=== PATIENT | female | born 1990 | race Caucasian/White ===

== ENCOUNTER → 2017-10-22 15:07 | Outpatient (CLI) | payer BC, SELFPAY ==
[2017-10-22 15:29] LABS: Basophils % 0.2 % (0.1-2.0); Eosinophils # 0.1 K/mm3 (0.0-0.4); Eosinophils % 1.5 % (0.1-12.0); Hemoglobin 11.4 g/dL (12.2-16.2); Lymphocytes % 38.5 K/mm3 (10-50); Mean Corpuscular HGB Conc 33.5 g/dL (31.8-35.4); Mean Corpuscular Hemoglobin 30.9 pg (27.0-31.2); Mean Corpuscular Volume 92.1 fl (81-99); Mean Platelet Volume 7.8 fl (7.4-10.4); Monocytes # 0.4 K/mm3 (0.1-1.0); Monocytes % 4.9 % (1.7-9.3); Neutrophils # 4.2 K/mm3 (1.8-7.8); Neutrophils % 54.8 % (37.0-80.0); Platelet Count 269 K/mm3 (142-424); Red Blood Count 3.69 M/mm3 (4.20-5.40); Red Cell Distribution Width 12.8 % (11.5-17.5); White Blood Count 7.7 K/mm3 (4.8-10.8)
[2017-10-24 12:57] LABS: HIV Screen 4th Generation wRfx Non Reactive (Non Reactive); Hepatitis B Surface Antigen Negative (Negative); Hepatitis C Antibody >11.0 s/co ratio (0.0-0.9); Rapid Plasma Reagin Ab Titer Non Reactive (NonRea<1:1)
== END ==
PROVIDERS: PCP Obstetrics & Gynecology; Visit Provider Obstetrics & Gynecology
DX: Z34.90 Encounter for supervision of normal pregnancy, unspecified, unspecified trimester (principal)
CPT/HCPCS: 36415; 85025; 86592; 86703; 86762; 86850; 87340; 87380; G0432

== ENCOUNTER → 2017-12-30 14:37 | Outpatient (CLI) | payer BC, SELFPAY ==
--- NOTE | 2017-12-30 14:41 | US_ITS ---
US OB /maternal detail: INDICATION: ITS.REASON: US OB Complete ORDERING PHYSICIAN: Catrina Haynes MD PATIENT AGE: 27 years TECHNIQUE: ultrasound transabdominal scanning. COMPARISON: No previous relevant studies. FINDINGS: Single viable intrauterine gestation. Cephalic position. Placenta: Posterior placenta grade 1. There is average amount fluid. The cervix appears satisfactory. Closed and measuring 3 cm in length. Complete survey performed and was unremarkable on the submitted images as in PACS. No discrete anomalies identified on survey imaging by technologist. Active fetus. Three-vessel cord with satisfactory umbilical cord insertion. 4- chamber heart noted. Survey of brain & ventricles.unremarkable Face and neck survey unremarkable. Diaphragm and chest views unremarkable . Abdomen: Both kidneys noted and unremarkable. Stomach noted and satisfactory. Spine: Survey of the spine satisfactory with no anomalies identified nor imaged. Both arms and legs noted. Amniotic Fluid: Adequate. Maternal adnexa: No significant findings. Measurements: Average ultrasound age 19w5d. Gestational Age 20w1d. Estimated due date by ultrasound age 1105/21/2018. Estimated weight 304 grams. This is 20th percentile based on established due date of 05/18/2018 BPD = 19w3d OFD = 20w4d HC = 19w3d AC = 19w3d FL = 20w1d Heart Rate = 129 bpm Cerebellum = 20w5d Humerus = 20w3d HC/AC is 1.19 (1.09-1.26). CI is 73% (70-86%). FL/BPD is 73%. FL/AC is 23%. IMPRESSION: Single live fetus at average ultrasound age of 19 weeks 5 days. No obvious anomalies. All parameters correlate. Please see above for detail.
== END ==
PROVIDERS: Visit Provider Obstetrics & Gynecology
DX: Z36.0 Encounter for antenatal screening for chromosomal anomalies (principal)
CPT/HCPCS: 76811

== ENCOUNTER → 2018-04-15 09:56 | Outpatient (CLI) | payer BC, SELFPAY ==
--- NOTE | 2018-04-15 | US_ITS ---
US OB biophysical profile, US OB follow up: Indication: ITS.REASON: US OB BPP Growth ORDERING PHYSICIAN: Catrina Haynes MD PATIENT AGE: 27 years FINDINGS: There is a single live fetus which is in cephalic presentation. Placenta is posterior and grade 2. The cervix is closed and measures approximately 3 cm. Heart tones are present at 120 bpm. TAMI is 12 cm. Biophysical profile is 8 of 8 The following parameters are obtained: Average ultrasound age is 33 weeks 5 days. Estimated due date by ultrasound is 05/29/2018. Estimated weight is 2011 g. This is 3 percentile consistent with small for gestational age BPD: 35 weeks 0 days OFD: 35 weeks 6 days HC: 35 weeks 0 days AC: 31 weeks 6 days FL: 32 weeks 5 days heart rate: 120 bpm. HC/AC: 1.13 Cephalic index: 78% FL/BPD: 73% FL/AC: 23% Amniotic fluid index: 12 cm Qualitative AFV: 2 breathing movements: 2 Gross body movements: 2 Tone: 2 Biophysical profile score: 8/8 Doppler evaluation of the umbilical artery: SD ratio: 2.7 Resistive index: 0.63 IMPRESSION: Single live intrauterine gestation in cephalic presentation with an average ultrasound age of 33 weeks 5 days. Estimated weight is 2011 g which is 3rd percentile. The HC BPD and OFD correlate to patient's gestational age of approximately 35 weeks. The abdominal circumference and femur length are decreased at 31 and 32 weeks. These findings are consistent with asymmetric intrauterine growth restriction. Biophysical profiles of 8 with normal amount of amniotic fluid The placenta is posterior and grade 2 with unremarkable Doppler evaluation of the umbilical artery.
== END ==
PROVIDERS: Visit Provider Obstetrics & Gynecology
DX: F11.20 Opioid dependence, uncomplicated (principal); O99.320 Drug use complicating pregnancy, unspecified trimester; R76.8 Other specified abnormal immunological findings in serum; Z79.891 Long term (current) use of opiate analgesic; Z87.898 Personal history of other specified conditions
CPT/HCPCS: 76816; 76819

== ENCOUNTER 2018-04-16 11:00 | Outpatient (CLI) | payer BC, SELFPAY ==
[2018-04-16 11:13] VITALS: BP 116/77; PULSE 75; RESP 18; TEMP 36.9; O2SAT 98; BMI 27.4
== END 2018-04-16 11:40 | disposition home or self-care (01) ==
LOC: OBOUT 11:02 → OB 11:02
PROVIDERS: Visit Provider Nurse Practitioner Obstetrics & Gynecology
DX: Z34.90 Encounter for supervision of normal pregnancy, unspecified, unspecified trimester (principal)
CPT/HCPCS: 59025

== ENCOUNTER 2018-04-18 12:02 | Inpatient (IN) ==
[2018-04-18 13:19] LABS: Basophils % 0.3 % (0.1-2.0); Eosinophils # 0.1 K/mm3 (0.0-0.4); Eosinophils % 0.7 % (0.1-12.0); Hematocrit 33.4 % (37.0-47.0); Hemoglobin 11.2 g/dL (12.2-16.2); Lymphocytes # 2.7 K/mm3 (0.7-4.5); Lymphocytes % 30.3 K/mm3 (10-50); Mean Corpuscular HGB Conc 33.5 g/dL (31.8-35.4); Mean Corpuscular Hemoglobin 31.9 pg (27.0-31.2); Mean Corpuscular Volume 95.1 fl (81-99); Mean Platelet Volume 8.8 fl (7.4-10.4); Monocytes # 0.6 K/mm3 (0.1-1.0); Monocytes % 6.2 % (1.7-9.3); Neutrophils # 5.6 K/mm3 (1.8-7.8); Neutrophils % 62.5 % (37.0-80.0); Platelet Count 280 K/mm3 (142-424); Red Blood Count 3.51 M/mm3 (4.20-5.40); Red Cell Distribution Width 13.5 % (11.5-17.5)
[2018-04-18 15:06] LABS: Appearance,Urine SL CLOUDY (Clear); Blood, Urine Negative (Negative); Color,Urine YELLOW (Yellow); Glucose,Urine (UA) 2+ (Negative); Ketones,Urine TRACE (Negative); Leukocyte Esterase,Urine Negative (Negative); Microscopic, Urine URINE MICROSCOPIC (MICROSCOPIC); PH,Urine 6.5 (5.0-8.5); Protein,Urine Negative (Negative); Specific Gravity, Urine 1.025 (1.005-1.030)
[2018-04-18 15:12] LABS: Bilirubin,Urine Negative (Negative)
[2018-04-18 15:13] LABS: Amphetamine/Metha Screen,Urine Negative ng/mL (<1000); Barbiturates Screen,Urine Negative ng/mL (<200); Benzodiazepines Screen,Urine Negative ng/mL (<200); Cannabinoid Screen,Urine Negative ng/mL (<50); Cocaine Screen,Urine Negative ng/mL (<300); Methadone Screen,Urine Negative ng/mL (<300); Opiate Screen,Urine Negative ng/mL (<300); Phencyclidine Screen,Urine Negative ng/mL (<25)
[2018-04-18 15:16] LABS: Bacteria,Urine 3+ /lpf; Mucus,Urine 4+ /lpf; Squamous Epithelial Cell,Urine 20-50 #/hpf (0-5)
--- NOTE | 2018-04-18 16:23 | History & Physical Report ---
OB - H&P: HPI Antepartum - History of Present Illness Chief complaint: testing for IUGR History of present illness: Patient is established with this practice and very compliant with care during this . Current EGA 35 5/ and presented to triage for outpatient NST ordered as ongoing assessment of IUGR on ultrasound performed 04/15/18, which showed overall growth of 3%. TAMI and UA doppler assessment both normal at that time and twice weekly NST was ordered in short term f/u. At presentation today, she had no complaints, and specifically denied fever, abdominal pain, dysuria, respiratory complaints, leakage of fluid, regular contractions, vaginal bleeding or unusual vaginal discharge. She did report a perceived decrease in movement today prior to presentation when inquired, but thought this was normal for morning time of day. Initial monitoring was not reactive and concerning with a minimal amount of variability, and BPP was ordered. 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 No breathing was observed and that gross movement was only observed with physical "prodding" via ultrasound probe. Gross amniotic fluid was decreased with TAMI of 7.0 but did have a MVP large enough to obtain 2 points for fluid on BPP. BPP score at time of conclusion of ultrasound was 6/10 (-2 breathing and -2 NST) but after being placed back on NST following ultrasound, the strip became reactive and BPP total score 8/10 (-2 breathing). Variability currently alternating between minimal and moderate. Overall impression of NST is not concerning enough to warrant immediate delivery at this GA but is concerning enough to necessitate admission for continuous monitoring and repeat ultrasound for BPP, TAMI and UA dopplers tomorrow morning. has otherwise been complicated by chronic hepatitis C, tobacco abuse and subutex maintenance (history of IV heroin abuse). Current subutex dose is 8mg daily, which she takes in 2 divided doses of 4mg BID. Subutex has been managed by the clinic and dose has been steadily but appropriately decreased over the course of her . UDS performed in office have been as expected at every visit. She has been counseled about the risks to well being with tobacco abuse and reports that she has decreased, but been unable to eliminate, tobacco usage during this . She has a history of a previous CS and is currently scheduled for elective repeat CS at 39 wks. [facility] History Medical History: Denies:: Anxiety, Depression, Hyperlipidemia, Hypertension, Migraine, MRSA, Seizures Other Surgeries: Yes: Amputation: No Fractures: No - *Social History Smoking Status: Current every day smoker Tobacco Type: cigarettes Alcohol Intake: never Substance Use Type: former substance user Comment: heroin - Psychiatric History Expresses thoughts of harming self/others: None Suicide Plan Description: No Plan Pschychiatric History:: Denies:: Anxiety, Depression *Family Hx:: Cancer, Diabetes, Heart Attack, Hypertension, Stroke : 2 Para: 1 Comment: c section G1 Review of Systems - Constitutional Denies anorexia, Denies chills, Denies fever(s) - Eyes Denies blurry vision, Denies change in vision, Denies double vision - ENT Denies bleeding gums, Denies mouth lesions - *Cardiovascular Denies chest pain, Denies shortness of breath - *Respiratory Denies chest congestion, Denies cough, Denies shortness of breath - *Gastrointestinal Denies abdominal pain, Denies heartburn, Denies nausea, Denies vomiting - *Genitourinary Denies abnormal vaginal bleeding, Denies painful urination, Denies vaginal discharge - *Musculoskeletal Denies back pain, Denies body aches - Integumentary/Breasts Denies new lesions, Denies rash - *Neurologic Denies headache(s), Denies loss of vision, Denies other visual disturbances - Psychiatric Denies anxiety, Denies depression - Hematologic/Lymphatic Denies easy bleeding, Denies easy bruising, Denies enlarged lymph nodes Meds Home Medications Medication Instructions Recorded Confirmed Type buprenorphine HCl 8 mg sublingual 8 mg SUBLINGUAL ONCE 10/22/17 04/02/18 History tablet 1 tab PO BID tab 10/22/17 04/02/18 History vitamin,calcium,[id number] acid tablet Allergies Allergy/AdvReac Type Severity Reaction Status Date / Time No Known Allergies Allergy Verified 04/02/18 11:12 OB - H&P: Exam - Physical Exam Vital signs: Temp Pulse Resp BP Pulse Ox 98.0 F 87 20 120/60 100 04/18/18 12:19 04/18/18 12:19 04/18/18 12:19 04/18/18 12:19 04/18/18 12:19 - Constitutional no acute distress, cooperative - Routine HEENT Exam Head: Present: normocephalic, atraumatic Eye: Absent: conjunctival icterus, scleral injection ENT: Present: mucous membranes moist - Routine Chest/Breast/Axilla Exam Chest wall: Absent: tenderness - Routine Respiratory Exam Present: CTA bilaterally. Absent: respiratory distress - Routine Cardiovascular Exam Present: RRR. Absent: tachycardia - Routine Abdominal Exam Present: soft. Absent: tenderness, distended, guarding - Routine Extremities Exam Absent: edema, calf tenderness - Routine Skin Exam Present: dry, warm. Absent: rash - Routine Neurological Exam Present: alert, oriented X3. Absent: sensory deficit, motor deficit, altered mental status - Routine Psychiatric Exam Present: normal affect, cooperative. Absent: depressed, anxious - Detailed Labor and Delivery Exam monitor accelerations: Present (after prolonged monitoring) monitor decelerations: Variable detention variability: Minimal (3-5) (alternating between minimal and moderate over prolonged period of time) OB - Results - Labs Labs: Short CBC 04/18/18 Range/Units 13:09 WBC 9.0 (4.8-10.8) K/mm3 Hgb 11.2 L (12.2-16.2) g/dL Hct 33.4 L (37.0-47.0) % Plt Count 280 (142-424) K/mm3 Urine 04/18/18 Range/Units 14:20 Urine Color Yellow (Yellow) Urine Appearance Sl cloudy (Clear) Urine pH 6.5 (5.0-8.5) Ur Specific [place] 1.025 (1.005-1.030) Urine Protein Negative (Negative) Urine Glucose (UA) 2+ (Negative) OB - A/P Antepartum (1) 35 weeks gestation of Problem details: 35 5/7 Current visit: Yes Status: Acute (2) affected by growth restriction Problem details: Growth 3% Current visit: Yes Status: Acute (3) Oligohydramnios in third trimester Problem details: TAMI 7.0 Current visit: Yes Status: Acute (4) Abnormal ultrasonic finding on screening of mother Problem details: BPP 12/07 (-2 breathing, -2 NST) Current visit: Yes Status: Acute (5) Uteroplacental insufficiency, third trimester Current visit: Yes Status: Acute (6) 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 details: transition from heroin Current visit: No Status: Chronic (7) complicated by subutex maintenance, antepartum Problem details: 8mg BID Current visit: No Status: Acute (8) HCV antibody positive Current visit: No Status: Acute (9) Anemia complicating Problem details: Hgb 11.2 Current visit: Yes Status: Acute (10) Tobacco smoking affecting in first trimester Problem details: 1PPD Current visit: No Status: Chronic (11) Previous section Current visit: No Status: Chronic (12) ASCUS with positive high risk HPV Problem details: HR HPV + (non 16/18) Current visit: No Status: Acute - Additional Plan Additional Information:: Admission for observation Continuous monitoring Repeat BPP with UA dopplers and TAMI in am Recommend administration of steriods in anticipation of delivery before 37 wks due to abnormal testing with evidence of uteroplacental insufficiency Nicotine patch ordered and continued tobacco cessation recommended Continue PNV with FeSO4 supplementation
--- NOTE | 2018-04-18 22:37 | Progress Note ---
Internal Medicine - PN: Subj *Date: 04/18/18 *Time: 22:26 Interval history: HD #1, 35 5/7 antepartum admission for prolonged monitoring with IUGR, oligohydramnios and uteroplacental insufficiency with abnormal testing. The patient has no current/new complaints. Since time of admission, heart tracing has remained stable, with stable status. She has been on continuous monitoring since admission. Baseline 130-140, with the majority of tracing showing moderate variability and intermittent accelerations. Brief periods of time ranging from 4-10 minutes with minimal variability (<5) but overall reassuring/stable. Occasional mild variable decelerations, but less than were observed during evaluation time in triage prior to admission. Possible late decelerations noted at 16:25 and 19:07, although this is unclear as there is no contraction present with which to correlate the timing of the deceleration, and this assessment is made strictly based upon the shape of the deceleration. Since evening shift began, accelerations have been noted at 19:00, 19:16, m21:45, 21:48, 22:00, 22:12, 22:29, 22:32 and 22:33; the non-stress test is currently reactive. Exam Vital signs and Labs for Last 24 Hours: Temp Pulse Resp BP Pulse Ox 98.0 F 87 20 120/60 100 04/18/18 12:19 04/18/18 12:19 04/18/18 12:19 04/18/18 12:19 04/18/18 12:19 Laboratory Results - last 24 hr 04/18/18 13:09: Blood Type A Positive, Antibody Screen Negative 04/18/18 13:09: WBC 9.0, RBC 3.51 L, Hgb 11.2 L, Hct 33.4 L, MCV 95.1, MCH 31.9 H, MCHC 33.5, RDW 13.5, Plt Count 280, MPV 8.8, Neut % (Auto) 62.5, Lymph % (Auto) 30.3, Fisher % (Auto) 6.2, Eos % (Auto) 0.7, Baso % (Auto) 0.3, Neut # (Auto) 5.6, Lymph # (Auto) 2.7, Fisher # (Auto) 0.6, Eos # (Auto) 0.1, Baso # (Auto) 0.0 04/18/18 14:20: Urine Color Yellow, Urine Appearance Sl cloudy, Urine pH 6.5, Ur Specific [place] 1.025, Urine Protein Negative, Urine Glucose (UA) 2+, Urine Ketones Trace, Urine Blood Negative, Urine Nitrate Negative, Urine Bilirubin Negative, Urine Urobilinogen 1.0, Ur Leukocyte Esterase Negative, Urine WBC 5- 10, Ur Squamous Epith Cells 20-50, Urine Bacteria 3+, Urine Mucus 4+ 04/18/18 14:20: Urine Opiates Screen Negative, Urine Methadone Screen Negative, Ur Barbituates Screen Negative, Ur Phencyclidine Scrn Negative, Ur Amphetamines Screen Negative, U Benzodiazepines Scrn Negative, Urine Cocaine Screen Negative, U Marijuana (THC) Screen Negative I & O for Last 24 hours: Intake & Output 04/16/18 04/17/18 04/18/18 04/19/18 11:59 11:59 11:59 11:59 Weight 160 lb - Constitutional no acute distress - *Routine Abdominal Exam Present: soft. Absent: tenderness, distended, guarding - *Routine Extremities Exam Absent: edema - *Routine Skin Exam Present: dry, warm. Absent: rash - *Routine Neurological Exam Present: alert, oriented X3. Absent: altered mental status - Routine Psychiatric Exam Present: normal affect. Absent: depressed, anxious Assessment and Plan (1) 35 weeks gestation of Problem details: 35 5/7 Current visit: Yes Status: Acute Category: Medical Code(s): Z3A.35 - 35 weeks gestation of (2) affected by growth restriction Problem details: Growth 3% Current visit: Yes Status: Acute Category: Medical Code(s): O36.5990 - Maternal care for other known or suspected poor growth, unspecified trimester, not applicable or unspecified (3) Oligohydramnios in third trimester Problem details: TAMI 7.0 Current visit: Yes Status: Acute Category: Medical Code(s): O41.03X0 - Oligohydramnios, third trimester, not applicable or unspecified (4) Abnormal ultrasonic finding on screening of mother Problem details: BPP 12/07 (-2 breathing, -2 NST) Current visit: Yes Status: Acute Category: Medical Code(s): O28.3 - Abnormal ultrasonic finding on screening of mother (5) Uteroplacental insufficiency, third trimester Current visit: Yes Status: Acute Category: Medical Code(s): O36.5130 - Maternal care for known or suspected placental insufficiency, third trimester, not applicable or unspecified (6) 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 details: transition from heroin Current visit: No Status: Chronic Category: Medical Code(s): Z87.898 - Personal history of other specified conditions (7) complicated by subutex maintenance, antepartum Problem details: 8mg BID Current visit: No Status: Acute Category: Medical Code(s): O99.320 - Drug use complicating , unspecified trimester; F11.20 - Opioid dependence, uncomplicated; 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 (8) HCV antibody positive Current visit: No Status: Acute Category: Medical Code(s): R76.8 - Other specified abnormal immunological findings in serum (9) Anemia complicating Problem details: Hgb 11.2 Current visit: Yes Status: Acute Category: Medical Code(s): O99.019 - Anemia complicating , unspecified trimester (10) Tobacco smoking affecting in first trimester Problem details: 1PPD Current visit: No Status: Chronic Category: Medical Code(s): O99.331 - Smoking (tobacco) complicating , first trimester (11) Previous section Current visit: No Status: Chronic Category: Surgical Code(s): Z98.891 - History of uterine scar from previous surgery (12) ASCUS with positive high risk HPV Problem details: HR HPV + (non 16/18) Current visit: No Status: Acute Category: Medical - Assessment and plan all Dx Assessment and Plan for all problems:: Continue inpatient admission with continuous monitoring. Continue IV hydration, continue subutex. Ultrasound for repeat BPP, TAMI and UA dopplers in am. Nicotine patch for maintenance of tobacco status. Continue PNV with FeSO4
--- NOTE | 2018-04-19 16:00 | Progress Note ---
Internal Medicine - PN: Subj *Date: 04/19/18 *Time: 15:56 Interval history: HD#2 No complaints Continues to deny contractions, LOF or VB FM is intermittent but no change from regular baseline status Repeat BPP this morning still 6/8; NST is reactive for total score of 8/10 Variability has been moderate for the majority of tracing (she has remained on continuous EFM), with intermittent brief periods (20 min or less) of minimal variability Occasional small variable decelerations but no late decelerations noted today Exam Vital signs and Labs for Last 24 Hours: Temp Pulse Resp BP Pulse Ox 98.0 F 87 20 120/60 100 04/18/18 12:19 04/18/18 12:19 04/18/18 12:19 04/18/18 12:19 04/18/18 12:19 I & O for Last 24 hours: Intake & Output 04/17/18 04/18/18 04/19/18 04/20/18 11:59 11:59 11:59 11:59 Weight 160 lb Microbiology Reports for the Last 24 Hours: Microbiology 04/18/18 14:20 Urine,Clean Catch Urine Culture - Preliminary NO GROWTH AFTER 24 HOURS - Constitutional no acute distress - *Routine HEENT Exam Head: Present: normocephalic, atraumatic ENT: Present: mucous membranes moist - *Routine Respiratory Exam Present: CTA bilaterally. Absent: respiratory distress - *Routine Cardiovascular Exam Present: RRR. Absent: tachycardia - *Routine Abdominal Exam Present: soft. Absent: tenderness, distended, guarding - *Routine Extremities Exam Absent: edema - *Routine Skin Exam Present: dry, warm - *Routine Neurological Exam Present: alert, oriented X3. Absent: altered mental status - Routine Psychiatric Exam Present: normal affect. Absent: depressed, anxious Assessment and Plan (1) 35 weeks gestation of Problem details: 35 5/7 Current visit: Yes Status: Acute Category: Medical Code(s): Z3A.35 - 35 weeks gestation of (2) affected by growth restriction Problem details: Growth 3% Current visit: Yes Status: Acute Category: Medical Code(s): O36.5990 - Maternal care for other known or suspected poor growth, unspecified trimester, not applicable or unspecified (3) Oligohydramnios in third trimester Problem details: TAMI 7.0 Current visit: Yes Status: Acute Category: Medical Code(s): O41.03X0 - Oligohydramnios, third trimester, not applicable or unspecified (4) Abnormal ultrasonic finding on screening of mother Problem details: BPP 12/07 (-2 breathing, -2 NST) Current visit: Yes Status: Acute Category: Medical Code(s): O28.3 - Abnormal ultrasonic finding on screening of mother (5) Uteroplacental insufficiency, third trimester Current visit: Yes Status: Acute Category: Medical Code(s): O36.5130 - Maternal care for known or suspected placental insufficiency, third trimester, not applicable or unspecified (6) 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 details: transition from heroin Current visit: No Status: Chronic Category: Medical Code(s): Z87.898 - Personal history of other specified conditions (7) complicated by subutex maintenance, antepartum Problem details: 8mg BID Current visit: No Status: Acute Category: Medical Code(s): O99.320 - Drug use complicating , unspecified trimester; F11.20 - Opioid dependence, uncomplicated; 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 (8) HCV antibody positive Current visit: No Status: Acute Category: Medical Code(s): R76.8 - Other specified abnormal immunological findings in serum (9) Anemia complicating Problem details: Hgb 11.2 Current visit: Yes Status: Acute Category: Medical Code(s): O99.019 - Anemia complicating , unspecified trimester (10) Tobacco smoking affecting in first trimester Problem details: 1PPD Current visit: No Status: Chronic Category: Medical Code(s): O99.331 - Smoking (tobacco) complicating , first trimester (11) Previous section Current visit: No Status: Chronic Category: Surgical Code(s): Z98.891 - History of uterine scar from previous surgery (12) ASCUS with positive high risk HPV Problem details: HR HPV + (non 16/18) Current visit: No Status: Acute Category: Medical - Assessment and plan all Dx Assessment and Plan for all problems:: Continue inpatient admission Continuous monitoring with NST and twice weekly BPP Patient advised that she will be delivered at 37 wks if status remains sta ble, or sooner as indicated for non-reassuring status All questions answered with patient and family Total [id number] time spent in counseling 45 minutes
--- NOTE | 2018-04-20 19:04 | Progress Note ---
Internal Medicine - PN: Subj *Date: 04/20/18 *Time: 13:10 Interval history: HD #3 IUGR, oligohydramnios, abnormal testing No new complaints tracing has continued to be stable, but with alternating periods of decreased/minimal variability and moderate variability with accelerations Exam Vital signs and Labs for Last 24 Hours: Temp Pulse Resp BP Pulse Ox 97.8 F 86 18 112/58 L 100 04/19/18 19:28 04/19/18 19:28 04/19/18 19:28 04/19/18 19:28 04/18/18 12:19 I & O for Last 24 hours: Intake & Output 04/18/18 04/19/18 04/20/18 04/21/18 11:59 11:59 11:59 11:59 Weight 160 lb Microbiology Reports for the Last 24 Hours: Microbiology 04/18/18 14:20 Urine,Clean Catch Urine Culture - Final Multiple organisms, suggests contamination. - Constitutional no acute distress - *Routine Respiratory Exam Absent: respiratory distress - *Routine Cardiovascular Exam Present: RRR - *Routine Abdominal Exam Present: soft. Absent: tenderness, distended - *Routine Extremities Exam Absent: edema - *Routine Skin Exam Absent: rash - *Routine Neurological Exam Present: alert, oriented X3 - Routine Psychiatric Exam Present: normal affect. Absent: depressed, anxious Assessment and Plan (1) 35 weeks gestation of Problem details: 35 5/7 Current visit: Yes Status: Acute Category: Medical Code(s): Z3A.35 - 35 weeks gestation of (2) affected by growth restriction Problem details: Growth 3% Current visit: Yes Status: Acute Category: Medical Code(s): O36.5990 - Maternal care for other known or suspected poor growth, unspecified trimester, not applicable or unspecified (3) Oligohydramnios in third trimester Problem details: TAMI 7.0 Current visit: Yes Status: Acute Category: Medical Code(s): O41.03X0 - Oligohydramnios, third trimester, not applicable or unspecified (4) Abnormal ultrasonic finding on screening of mother Problem details: BPP 12/07 (-2 breathing, -2 NST) Current visit: Yes Status: Acute Category: Medical Code(s): O28.3 - Abnormal ultrasonic finding on screening of mother (5) Uteroplacental insufficiency, third trimester Current visit: Yes Status: Acute Category: Medical Code(s): O36.5130 - Maternal care for known or suspected placental insufficiency, third trimester, not applicable or unspecified (6) 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 details: transition from heroin Current visit: No Status: Chronic Category: Medical Code(s): Z87.898 - Personal history of other specified conditions (7) complicated by subutex maintenance, antepartum Problem details: 8mg BID Current visit: No Status: Acute Category: Medical Code(s): O99.320 - Drug use complicating , unspecified trimester; F11.20 - Opioid dependence, uncomplicated; Z79.891 - custodial (current) use of opiate analgesic (8) HCV antibody positive Current visit: No Status: Acute Category: Medical Code(s): R76.8 - Other specified abnormal immunological findings in serum (9) Anemia complicating Problem details: Hgb 11.2 Current visit: Yes Status: Acute Category: Medical Code(s): O99.019 - Anemia complicating , unspecified trimester (10) Tobacco smoking affecting in first trimester Problem details: 1PPD Current visit: No Status: Chronic Category: Medical Code(s): O99.331 - Smoking (tobacco) complicating , first trimester (11) Previous section Current visit: No Status: Chronic Category: Surgical Code(s): Z98.891 - History of uterine scar from previous surgery (12) ASCUS with positive high risk HPV Problem details: HR HPV + (non 16/18) Current visit: No Status: Acute Category: Medical - Assessment and plan all Dx Assessment and Plan for all problems:: Continue inpatient admission status Continuous monitoring BPP twice weekly (scheduled for friday) continue subutex as prescribed by clinic Repeat labs tomorrow Delivery at 37 wks or sooner as indicated for any decline in or maternal status
[2018-04-21 08:13] LABS: Basophils % 0.1 % (0.1-2.0); Eosinophils # 0.1 K/mm3 (0.0-0.4); Eosinophils % 0.4 % (0.1-12.0); Hematocrit 29.9 % (37.0-47.0); Lymphocytes # 2.8 K/mm3 (0.7-4.5); Lymphocytes % 28.1 K/mm3 (10-50); Mean Corpuscular HGB Conc 33.5 g/dL (31.8-35.4); Mean Corpuscular Hemoglobin 32.2 pg (27.0-31.2); Mean Corpuscular Volume 96.2 fl (81-99); Mean Platelet Volume 8.7 fl (7.4-10.4); Monocytes # 0.7 K/mm3 (0.1-1.0); Monocytes % 7.2 % (1.7-9.3); Neutrophils # 6.5 K/mm3 (1.8-7.8); Neutrophils % 64.2 % (37.0-80.0); Platelet Count 247 K/mm3 (142-424); Red Cell Distribution Width 13.6 % (11.5-17.5)
--- NOTE | 2018-04-22 09:03 | Progress Note ---
Internal Medicine - PN: Subj *Date: 04/22/18 *Time: 09:30 Interval history: HD #4, 36 07/06 No new complaints NST continues to have intermittent periods of minimal variability alternating with moderate variability, but no specific late decelerations visualized overnight Ultrasound this morning BPP 8/8 and TAMI unchanged (7cm) No LOF or VB Exam Vital signs and Labs for Last 24 Hours: Temp Pulse Resp BP Pulse Ox 98.4 F 66 16 118/75 97 04/20/18 19:41 04/20/18 19:41 04/20/18 19:41 04/20/18 19:41 04/20/18 19:41 Laboratory Results - last 24 hr 04/18/18 14:20: Ur Buprenorphine Positive A, U Buprenorphine Confirm 1530, Ur Norbuprenorphine Positive A, U Norbuprenorphine fm 1701 04/21/18 07:55: Antibody Screen Negative I & O for Last 24 hours: Intake & Output 04/19/18 04/20/18 04/21/18 04/22/18 11:59 11:59 11:59 11:59 Weight 160 lb - Constitutional no acute distress - *Routine Respiratory Exam Present: CTA bilaterally. Absent: respiratory distress - *Routine Cardiovascular Exam Present: RRR - *Routine Abdominal Exam Present: soft. Absent: tenderness, distended - *Routine Extremities Exam Absent: edema - *Routine Skin Exam Present: dry, warm - *Routine Neurological Exam Present: alert, oriented X3 - Routine Psychiatric Exam Present: normal affect Assessment and Plan (1) 35 weeks gestation of Problem details: 35 5/7 Current visit: Yes Status: Acute Category: Medical Code(s): Z3A.35 - 35 weeks gestation of (2) affected by growth restriction Problem details: Growth 3% Current visit: Yes Status: Acute Category: Medical Code(s): O36.5990 - Maternal care for other known or suspected poor growth, unspecified trimester, not applicable or unspecified (3) Oligohydramnios in third trimester Problem details: TAMI 7.0 Current visit: Yes Status: Acute Category: Medical Code(s): O41.03X0 - Oligohydramnios, third trimester, not applicable or unspecified (4) Abnormal ultrasonic finding on screening of mother Problem details: BPP 6/10 (-2 breathing, -2 NST) Current visit: Yes Status: Acute Category: Medical Code(s): O28.3 - Abnormal ultrasonic finding on screening of mother (5) Uteroplacental insufficiency, third trimester Current visit: Yes Status: Acute Category: Medical Code(s): O36.5130 - Maternal care for known or suspected placental insufficiency, third trimester, not applicable or unspecified (6) 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 details: transition from heroin Current visit: No Status: Chronic Category: Medical Code(s): Z87.898 - Personal history of other specified conditions (7) complicated by subutex maintenance, antepartum Problem details: 8mg BID Current visit: No Status: Acute Category: Medical Code(s): O99.320 - Drug use complicating , unspecified trimester; F11.20 - Opioid dependence, uncomplicated; Z79.891 - detention (current) use of opiate analgesic (8) HCV antibody positive Current visit: No Status: Acute Category: Medical Code(s): R76.8 - Other specified abnormal immunological findings in serum (9) Anemia complicating Problem details: Hgb 11.2 Current visit: Yes Status: Acute Category: Medical Code(s): O99.019 - Anemia complicating , unspecified trimester (10) Tobacco smoking affecting in first trimester Problem details: 1PPD Current visit: No Status: Chronic Category: Medical Code(s): O99.331 - Smoking (tobacco) complicating , first trimester (11) Previous section Current visit: No Status: Chronic Category: Surgical Code(s): Z98.891 - History of uterine scar from previous surgery (12) ASCUS with positive high risk HPV Problem details: HR HPV + (non 16/18) Current visit: No Status: Acute Category: Medical - Assessment and plan all Dx Assessment and Plan for all problems:: 36 1/7 IUGR 3%, oligohydramnios with intermittent non-reassuring NST Continue inpatient admission with delivery at 37 weeks (repeat CS) or earlier for any worsening maternal/ status Continue NST q shift and twice weekly BPP Continue subutex as prescribed
--- NOTE | 2018-04-22 17:37 | Progress Note ---
Internal Medicine - PN: Subj *Date: 04/22/18 *Time: 12:40 Interval history: HD #5, 36 2/ No new complaints Denies VB, CTX, LOF FM continues to be intermittent Exam Vital signs and Labs for Last 24 Hours: Temp Pulse Resp BP Pulse Ox 98.4 F 66 16 118/75 97 04/20/18 19:41 04/20/18 19:41 04/20/18 19:41 04/20/18 19:41 04/20/18 19:41 Laboratory Results - last 24 hr 04/18/18 14:20: Ur Buprenorphine Positive A, U Buprenorphine Confirm 1530, Ur Norbuprenorphine Positive A, U Norbuprenorphine Cnfm 1701 - Constitutional no acute distress - *Routine Cardiovascular Exam Absent: tachycardia - *Routine Abdominal Exam Present: soft. Absent: tenderness, distended - *Routine Extremities Exam Absent: edema - *Routine Skin Exam Absent: rash - Routine Psychiatric Exam Absent: depressed, anxious Assessment and Plan (1) 35 weeks gestation of Problem details: 35 5/7 Current visit: Yes Status: Acute Category: Medical Code(s): Z3A.35 - 35 weeks gestation of (2) affected by growth restriction Problem details: Growth 3% Current visit: Yes Status: Acute Category: Medical Code(s): O36.5990 - Maternal care for other known or suspected poor growth, unspecified trimester, not applicable or unspecified (3) Oligohydramnios in third trimester Problem details: TAMI 7.0 Current visit: Yes Status: Acute Category: Medical Code(s): O41.03X0 - Oligohydramnios, third trimester, not applicable or unspecified (4) Abnormal ultrasonic finding on screening of mother Problem details: BPP 12/07 (-2 breathing, -2 NST) Current visit: Yes Status: Acute Category: Medical Code(s): O28.3 - Abnormal ultrasonic finding on screening of mother (5) Uteroplacental insufficiency, third trimester Current visit: Yes Status: Acute Category: Medical Code(s): O36.5130 - Maternal care for known or suspected placental insufficiency, third trimester, not applicable or unspecified (6) 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 details: transition from heroin Current visit: No Status: Chronic Category: Medical Code(s): Z87.898 - Personal history of other specified conditions (7) complicated by subutex maintenance, antepartum Problem details: 8mg BID Current visit: No Status: Acute Category: Medical Code(s): O99.320 - Drug use complicating , unspecified trimester; F11.20 - Opioid dependence, uncomplicated; 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 (8) HCV antibody positive Current visit: No Status: Acute Category: Medical Code(s): R76.8 - Other specified abnormal immunological findings in serum (9) Anemia complicating Problem details: Hgb 11.2 Current visit: Yes Status: Acute Category: Medical Code(s): O99.019 - Anemia complicating , unspecified trimester (10) Tobacco smoking affecting in first trimester Problem details: 1PPD Current visit: No Status: Chronic Category: Medical Code(s): O99.331 - Smoking (tobacco) complicating , first trimester (11) Previous section Current visit: No Status: Chronic Category: Surgical Code(s): Z98.891 - History of uterine scar from previous surgery (12) ASCUS with positive high risk HPV Problem details: HR HPV + (non 16/18) Current visit: No Status: Acute Category: Medical - Assessment and plan all Dx Assessment and Plan for all problems:: 36 2/7, oligoyhdramnios, IUGR, non-reassuring testing Continue inpatient admission with delivery (repeat CS) at 37 wks, unless decline in maternal/ status NST q shift, twice weekly BPP
--- NOTE | 2018-04-23 16:06 | Progress Note ---
Internal Medicine - PN: Subj *Date: 04/23/18 *Time: 16:03 Interval history: HD# 6, 36 3/ Antepartum admission for IUGR, oligohydramnios and non-reassuring testing Planned continued inpatient status until delivery at 37w or earlier if indicated by decline in maternal or status No new complaints today Continues to deny LOF, VB or regular contractions NST has remained stable with alternating periods of moderate and minimal variability, but no concerning late decelerations or prolonged periods of minimal variability; some improvement in tracing overall noted with elimination of tobacco smoking and continued bedrest while inpatient BPP, TAMI and UA dopplers will be repeated tomorrow Exam Vital signs and Labs for Last 24 Hours: Temp Pulse Resp BP Pulse Ox 98.4 F 66 16 118/75 97 04/20/18 19:41 04/20/18 19:41 04/20/18 19:41 04/20/18 19:41 04/20/18 19:41 - Constitutional no acute distress - *Routine HEENT Exam ENT: Present: mucous membranes moist - *Routine Respiratory Exam Absent: respiratory distress - *Routine Cardiovascular Exam Present: RRR - *Routine Abdominal Exam Present: soft. Absent: tenderness, distended - *Routine Skin Exam Present: dry, warm. Absent: rash - *Routine Neurological Exam Present: alert, oriented X3. Absent: altered mental status - Routine Psychiatric Exam Present: normal affect. Absent: depressed, anxious Assessment and Plan (1) 35 weeks gestation of Problem details: 35 5/7 Current visit: Yes Status: Acute Category: Medical Code(s): Z3A.35 - 35 weeks gestation of (2) affected by growth restriction Problem details: Growth 3% Current visit: Yes Status: Acute Category: Medical Code(s): O36.5990 - Maternal care for other known or suspected poor growth, unspecified trimester, not applicable or unspecified (3) Oligohydramnios in third trimester Problem details: TAMI 7.0 Current visit: Yes Status: Acute Category: Medical Code(s): O41.03X0 - Oligohydramnios, third trimester, not applicable or unspecified (4) Abnormal ultrasonic finding on screening of mother Problem details: BPP 12/07 (-2 breathing, -2 NST) Current visit: Yes Status: Acute Category: Medical Code(s): O28.3 - Abnormal ultrasonic finding on screening of mother (5) Uteroplacental insufficiency, third trimester Current visit: Yes Status: Acute Category: Medical Code(s): O36.5130 - Maternal care for known or suspected placental insufficiency, third trimester, not applicable or unspecified (6) 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 details: transition from heroin Current visit: No Status: Chronic Category: Medical Code(s): Z87.898 - Personal history of other specified conditions (7) complicated by subutex maintenance, antepartum Problem details: 8mg BID Current visit: No Status: Acute Category: Medical Code(s): O99.320 - Drug use complicating , unspecified trimester; F11.20 - Opioid dependence, uncomplicated; Z79.891 - director long term care (current) use of opiate analgesic (8) HCV antibody positive Current visit: No Status: Acute Category: Medical Code(s): R76.8 - Other specified abnormal immunological findings in serum (9) Anemia complicating Problem details: Hgb 11.2 Current visit: Yes Status: Acute Category: Medical Code(s): O99.019 - Anemia complicating , unspecified trimester (10) Tobacco smoking affecting in first trimester Problem details: 1PPD Current visit: No Status: Chronic Category: Medical Code(s): O99.331 - Smoking (tobacco) complicating , first trimester (11) Previous section Current visit: No Status: Chronic Category: Surgical Code(s): Z98.891 - History of uterine scar from previous surgery (12) ASCUS with positive high risk HPV Problem details: HR HPV + (non 16/18) Current visit: No Status: Acute Category: Medical - Assessment and plan all Dx Assessment and Plan for all problems:: Continue inpatient admission until delivery Planned repeat CS at 37 0/7 or earlier if indicated by worsening maternal/ status Continue 3x daily NST and 2x weekly BPP, TAMI and UA dopplers; next ultrasound scheduled for tomorrow Insufficient lapse in time to repeat growth with tomorrow's ultrasound Continue IVF while inpatient due to oligohydramnios
--- NOTE | 2018-04-24 11:27 | Progress Note ---
Internal Medicine - PN: Subj *Date: 04/24/18 *Time: 11:24 Interval history: HD# 7, 36 4/7 Antepartum admission for IUGR, oligohydramnios and non-reassuring testing Planned continued inpatient status until delivery at 37w or earlier if indicated by decline in maternal or status No new complaints today Continues to deny LOF, VB or regular contractions NST has remained stable with alternating periods of moderate and minimal variability, but no concerning late decelerations or prolonged periods of minimal variability; some improvement in tracing overall noted with elimination of tobacco smoking and continued bedrest while inpatient BPP repeated this am Exam Vital signs and Labs for Last 24 Hours: Temp Pulse Resp BP Pulse Ox 97.9 F 89 17 123/62 98 04/24/18 08:00 04/24/18 08:00 04/24/18 08:00 04/24/18 08:00 04/23/18 19:56 Microbiology Reports for the Last 24 Hours: Microbiology 04/21/18 09:36 Vaginal Group B Streptococcus Screen (ANASTASIYA) - Final Negative for Group B Streptococcus. - Constitutional no acute distress - *Routine HEENT Exam ENT: Present: mucous membranes moist - *Routine Respiratory Exam Present: CTA bilaterally - *Routine Cardiovascular Exam Present: RRR - *Routine Abdominal Exam Present: soft. Absent: tenderness, distended - *Routine Extremities Exam Absent: edema - *Routine Skin Exam Present: intact, dry. Absent: rash - *Routine Neurological Exam Present: alert, oriented X3 - Routine Psychiatric Exam Absent: depressed, anxious Assessment and Plan (1) 35 weeks gestation of Problem details: 35 5/7 Current visit: Yes Status: Acute Category: Medical Code(s): Z3A.35 - 35 weeks gestation of (2) affected by growth restriction Problem details: Growth 3% Current visit: Yes Status: Acute Category: Medical Code(s): O36.5990 - Maternal care for other known or suspected poor growth, unspecified trimester, not applicable or unspecified (3) Oligohydramnios in third trimester Problem details: TAMI 7.0 Current visit: Yes Status: Acute Category: Medical Code(s): O41.03X0 - Oligohydramnios, third trimester, not applicable or unspecified (4) Abnormal ultrasonic finding on screening of mother Problem details: BPP 6/10 (-2 breathing, -2 NST) Current visit: Yes Status: Acute Category: Medical Code(s): O28.3 - Abnormal ultrasonic finding on screening of mother (5) Uteroplacental insufficiency, third trimester Current visit: Yes Status: Acute Category: Medical Code(s): O36.5130 - Maternal care for known or suspected placental insufficiency, third trimester, not applicable or unspecified (6) 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 details: transition from heroin Current visit: No Status: Chronic Category: Medical Code(s): Z87.898 - Personal history of other specified conditions (7) complicated by subutex maintenance, antepartum Problem details: 8mg BID Current visit: No Status: Acute Category: Medical Code(s): O99.320 - Drug use complicating , unspecified trimester; F11.20 - Opioid dependence, uncomplicated; 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 (8) HCV antibody positive Current visit: No Status: Acute Category: Medical Code(s): R76.8 - Other specified abnormal immunological findings in serum (9) Anemia complicating Problem details: Hgb 11.2 Current visit: Yes Status: Acute Category: Medical Code(s): O99.019 - Anemia complicating , unspecified trimester (10) Tobacco smoking affecting in first trimester Problem details: 1PPD Current visit: No Status: Chronic Category: Medical Code(s): O99.331 - Smoking (tobacco) complicating , first trimester (11) Previous section Current visit: No Status: Chronic Category: Surgical Code(s): Z98.891 - History of uterine scar from previous surgery (12) ASCUS with positive high risk HPV Problem details: HR HPV + (non 16/18) Current visit: No Status: Acute Category: Medical - Assessment and plan all Dx Assessment and Plan for all problems:: Continue inpatient management Delivery at 37 wks or earlier if indicated for decline in or maternal status 3x daily NST BPP repeated today; will be delivered before due for another scheduled BPP but may repeat BPP for any concerns with NST in interval Continue subutex management anesthesia advised of situation and considering options for po pain management following CS
--- NOTE | 2018-04-25 15:49 | Progress Note ---
Internal Medicine - PN: Subj *Date: 04/25/18 *Time: 15:51 Interval history: HD# 8, 36 5/7 Antepartum admission for IUGR, oligohydramnios and non-reassuring testing Planned continued inpatient status until delivery at 37w or earlier if indicated by decline in maternal or status No new complaints today Continues to deny LOF, VB or regular contractions NST has remained stable with alternating periods of moderate and minimal variability, but no concerning late decelerations or prolonged periods of minimal variability; some improvement in tracing overall noted with elimination of tobacco smoking and continued bedrest while inpatient BPP repeated yesterday: FINDINGS: There is a single viable fetus in cephalic presentation. The heart rate is 1 14 bpm. The TAMI now measures 9.67 cm whereas on the previous study measured 8.33 cm. The biophysical profile was 8 out of 8 the placenta is posterior and grade 2. The umbilical artery evaluation shows the RI to be 0.55 and the SD ratio 2.2 IMPRESSION: Slight interval improvement in the TAMI, consistent biophysical profile 8 out of 8 Planning scheduled repeat CS on Friday04/27/18, when she will be 37 0/7 Anesthesia aware and have discussed with patient recommendations and tentative plans for postop pain management with her current subutex management Exam Vital signs and Labs for Last 24 Hours: Temp Pulse Resp BP Pulse Ox 98.0 F 69 20 94/54 L 98 04/25/18 08:30 04/25/18 08:30 04/25/18 08:30 04/25/18 08:30 04/23/18 19:56 - Constitutional no acute distress - *Routine HEENT Exam ENT: Present: mucous membranes moist - *Routine Respiratory Exam Present: CTA bilaterally. Absent: respiratory distress - *Routine Cardiovascular Exam Present: RRR. Absent: tachycardia - *Routine Abdominal Exam Present: soft. Absent: tenderness, distended - *Routine Extremities Exam Present: edema (1+) - *Routine Skin Exam Present: dry, warm. Absent: rash - *Routine Neurological Exam Present: alert, oriented X3. Absent: altered mental status - Routine Psychiatric Exam Present: normal affect. Absent: depressed, anxious Assessment and Plan (1) 35 weeks gestation of Problem details: 35 11/03 Current visit: Yes Status: Acute Category: Medical Code(s): Z3A.35 - 35 weeks gestation of (2) affected by growth restriction Problem details: Growth 3% Current visit: Yes Status: Acute Category: Medical Code(s): O36.5990 - Maternal care for other known or suspected poor growth, unspecified trimester, not applicable or unspecified (3) Oligohydramnios in third trimester Problem details: TAMI 7.0 Current visit: Yes Status: Acute Category: Medical Code(s): O41.03X0 - Oligohydramnios, third trimester, not applicable or unspecified (4) Abnormal ultrasonic finding on screening of mother Problem details: BPP 12/07 (-2 breathing, -2 NST) Current visit: Yes Status: Acute Category: Medical Code(s): O28.3 - Abnormal ultrasonic finding on screening of mother (5) Uteroplacental insufficiency, third trimester Current visit: Yes Status: Acute Category: Medical Code(s): O36.5130 - Maternal care for known or suspected placental insufficiency, third trimester, not applicable or unspecified (6) 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 details: transition from heroin Current visit: No Status: Chronic Category: Medical Code(s): Z87.898 - Personal history of other specified conditions (7) complicated by subutex maintenance, antepartum Problem details: 8mg BID Current visit: No Status: Acute Category: Medical Code(s): O99.320 - Drug use complicating , unspecified trimester; F11.20 - Opioid dependence, uncomplicated; Z79.891 - halfway (current) use of opiate analgesic (8) HCV antibody positive Current visit: No Status: Acute Category: Medical Code(s): R76.8 - Other specified abnormal immunological findings in serum (9) Anemia complicating Problem details: Hgb 11.2 Current visit: Yes Status: Acute Category: Medical Code(s): O99.019 - Anemia complicating , unspecified trim shell (10) Tobacco smoking affecting in first trimester Problem details: 1PPD Current visit: No Status: Chronic Category: Medical Code(s): O99.331 - Smoking (tobacco) complicating , first trimester (11) Previous section Current visit: No Status: Chronic Category: Surgical Code(s): Z98.891 - History of uterine scar from previous surgery (12) ASCUS with positive high risk HPV Problem details: HR HPV + (non 16/18) Current visit: No Status: Acute Category: Medical - Assessment and plan all Dx Assessment and Plan for all problems:: Continue current plan in place: Inpatient management until delivery Delivery by repeat CS at 37 0/7, unless indicated earlier for decline in maternal or status Continue subutex management at current dose Will hold am dose on day of surgery, per anesthesia request Continue 3x daily NST with PRN continuous monitoring if warranted
[2018-04-27 05:51] LABS: Basophils % 0.2 % (0.1-2.0); Eosinophils # 0.1 K/mm3 (0.0-0.4); Hematocrit 30.2 % (37.0-47.0); Lymphocytes # 2.7 K/mm3 (0.7-4.5); Lymphocytes % 37.1 K/mm3 (10-50); Mean Corpuscular HGB Conc 33.2 g/dL (31.8-35.4); Mean Corpuscular Hemoglobin 32.1 pg (27.0-31.2); Mean Corpuscular Volume 96.5 fl (81-99); Mean Platelet Volume 8.1 fl (7.4-10.4); Monocytes # 0.4 K/mm3 (0.1-1.0); Monocytes % 6.2 % (1.7-9.3); Neutrophils % 55.5 % (37.0-80.0); Platelet Count 267 K/mm3 (142-424); Red Blood Count 3.13 M/mm3 (4.20-5.40); Red Cell Distribution Width 13.4 % (11.5-17.5); White Blood Count 7.1 K/mm3 (4.8-10.8)
--- NOTE | 2018-04-27 10:48 | Progress Note ---
[facility] Anesthesia Checklist - Patient Identification Patient Identification: Arm Band - Structural Data Admitted From: Inpatient Planned Operative Procedure/s: repeat c/s Consent for Planned Operative Procedure(s) Verified: Yes Verified Documents: Surgical Consent, History and Physical - NPO Status Verified Time NPO: 00:00 - Additional verifications Anesthesia Reactions: No - Airway Assessment C-Spine Mobility Assessed: Yes (mp2) TMJ Mobility Assessed: Yes Dentition: Good Dentition - Neurological Assessment Level of Consciousness: Awake, Alert - Anesthesia Plan Anesthesia Risk discussed: Yes Anesthesia Plan: Verified ASA Class: II Anesthesia Type: Spinal [facility] History I have reviewed the patient's past medical history: Yes Medical History: Reports:: Hepatitis (C) Denies:: Anxiety, Depression, Hyperlipidemia, Hypertension, Migraine, MRSA, Seizures Other Surgeries: Yes: Amputation: No Fractures: No - *Social History Smoking Status: Current every day smoker Tobacco Type: cigarettes Alcohol Intake: never Substance Use Type: former substance user - Psychiatric History Expresses thoughts of harming self/others: None Suicide Plan Description: No Plan Pschychiatric History:: Denies:: Anxiety, Depression *Family Hx:: Cancer, Diabetes, Heart Attack, Hypertension, Stroke Para: 1
--- NOTE | 2018-04-27 12:30 | Progress Note ---
Internal Medicine - PN: Subj *Date: 04/26/18 *Time: 08:50 Interval history: No changes overnight status remains stable Exam Vital signs and Labs for Last 24 Hours: Temp Pulse Resp BP Pulse Ox 98.3 F 67 18 100/59 L 100 04/27/18 08:00 04/27/18 08:00 04/27/18 08:00 04/27/18 08:00 04/27/18 08:00 Laboratory Results - last 24 hr 04/27/18 05:15: WBC 7.1, RBC 3.13 L, Hgb 10.0 L, Hct 30.2 L, MCV 96.5, MCH 32.1 H, MCHC 33.2, RDW 13.4, Plt Count 267, MPV 8.1, Neut % (Auto) 55.5, Lymph % (Auto) 37.1, [place] % (Auto) 6.2, Eos % (Auto) 1.0, Baso % (Auto) 0.2, Neut # (Auto) 4.0, Lymph # (Auto) 2.7, [place] # (Auto) 0.4, Eos # (Auto) 0.1, Baso # (Auto) 0.0 04/27/18 05:15: Blood Type A Positive, Antibody Screen Negative - Constitutional no acute distress - *Routine Abdominal Exam Present: soft. Absent: tenderness, distended - *Routine Skin Exam Present: intact, dry. Absent: rash - *Routine Neurological Exam Present: alert, oriented X3 - Routine Psychiatric Exam Absent: depressed, anxious Assessment and Plan (1) 35 weeks gestation of Problem details: 35 5/7 Current visit: Yes Status: Acute Category: Medical Code(s): Z3A.35 - 35 weeks gestation of (2) affected by growth restriction Problem details: Growth 3% Current visit: Yes Status: Acute Category: Medical Code(s): O36.5990 - Maternal care for other known or suspected poor growth, unspecified trimester, not applicable or unspecified (3) Oligohydramnios in third trimester Problem details: TAMI 7.0 Current visit: Yes Status: Acute Category: Medical Code(s): O41.03X0 - Oligohydramnios, third trimester, not applicable or unspecified (4) Abnormal ultrasonic finding on screening of mother Problem details: BPP 6/10 (-2 breathing, -2 NST) Current visit: Yes Status: Acute Category: Medical Code(s): O28.3 - Abnormal ultrasonic finding on screening of mother (5) Uteroplacental insufficiency, third trimester Current visit: Yes Status: Acute Category: Medical Code(s): O36.5130 - Maternal care for known or suspected placental insufficiency, third trimester, not applicable or unspecified (6) 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 details: transition from heroin Current visit: No Status: Chronic Category: Medical Code(s): Z87.898 - Personal history of other specified conditions (7) complicated by subutex maintenance, antepartum Problem details: 8mg BID Current visit: No Status: Acute Category: Medical Code(s): O99.320 - Drug use complicating , unspecified trimester; F11.20 - Opioid dependence, uncomplicated; Z79.891 - penitentiary (current) use of opiate analgesic (8) HCV antibody positive Current visit: No Status: Acute Category: Medical Code(s): R76.8 - Other specified abnormal immunological findings in serum (9) Anemia complicating Problem details: Hgb 11.2 Current visit: Yes Status: Acute Category: Medical Code(s): O99.019 - Anemia complicating , unspecified trimester (10) Tobacco smoking affecting in first trimester Problem details: 1PPD Current visit: No Status: Chronic Category: Medical Code(s): O99.331 - Smoking (tobacco) complicating , first trimester (11) Previous section Current visit: No Status: Chronic Category: Surgical Code(s): Z98.891 - History of uterine scar from previous surgery (12) ASCUS with positive high risk HPV Problem details: HR HPV + (non 16/18) Current visit: No Status: Acute Category: Medical - Assessment and plan all Dx Assessment and Plan for all problems:: 36 6/7 IUGR, oligohydramnios, intermittent non-reassuring testing Planned delivery by repeat CS tomorrow at 37 0/7 postop pain management plans discussed with anesthesia
--- NOTE | 2018-04-27 12:38 | Operative Note ---
Date of procedure: 04/27/18 Pre-op Diagnosis:: 1. IUP @ 37 0/7 2. IUGR 3% 3. Oligohydramnios 4. Non-reassuring testing 5. Tobacco abuse 6. complicated by subutex maintenance 7. Chronic hepatits C Post-op Diagnosis:: 1. IUP @ 37 0/7 2. IUGR 3% 3. Oligohydramnios 4. Non-reassuring testing 5. Tobacco abuse 6. complicated by subutex maintenance 7. Chronic hepatits C Procedure performed:: Repeat LTCS Surgeon:: Catrina Haynes MD Shellfish Checker(s):: Vazquez Palmer MD LAMP DEVELOPER:: Ernesto Rojas Anesthesia: spinal Estimated blood loss (mL): 600 Operative findings:: grossly normal uterus, fallopian tubes and ovaries bilaterally vigorous liveborn infant; see delivery report for infant data Operative note:: The patient was taken to the OR and spinal administered without difficulty. She was prepped and draped in normal sterile fashion. A pfannenstiel skin incision was made with the scalpel and carried down to the fascia. The fascia was incised in the midline and sharply dissected off the rectus muscles. The muscles were in the midline and the peritoneum was entered sharply and extended bluntly. The Gerber-O self retaining retractor was placed in the abdomen and a bladder flap was created. The uterus was incised in the lower uterine segment in a transverse fashion and extended bluntly. Amniotomy was performed and clear fluid noted. The was delivered in controlled fashion, without complication or shoulder dystocia. The was vigorous at and handed to awaiting pediatricians for evaluation after cord clamped and cut. The placenta was manually extracted and noted to be intact. The uterus was repaired with 0-vicryl in a running/locked fashion. The peritoneum was closed with 2-0 vicryl in running fashion. The subcutaneous fat was closed with 2-0 vicryl in interrupted fashion. The skin was closed with anthony. The patient tolerated the procedure well. Sponge, lap, needle and instrument counts were correct x 2. She was taken to PACU in stable condition. Condition: stable Disposition: PACU Specimens:: Placenta sent for pathology Complications:: none
--- NOTE | 2018-04-27 12:40 | Progress Note ---
[facility] Anesthesia Record Part I Intake, IV Amount: 2,000 Estimated blood loss (mL): 600 Urine output (mL): 600 Blood Pressure: 118/59 SaO2: 97 Pulse Rate: 79 Respiratory Rate: 16 Temperature: 97.3 F Patient is:: Awake, Stable Stable to PACU at:: 12:30
--- NOTE | 2018-04-27 12:41 | Progress Note ---
[facility] Anesthesia Record Part II Discharge Time: 13:00 Destination: Obstetric PACU nurse assessment reviewed?: Yes Patient Condition:: Good Anesthesia Complications:: None
[2018-04-28 05:40] LABS: Hemoglobin 9.5 g/dL (12.2-16.2)
--- NOTE | 2018-04-28 20:00 | Progress Note ---
Internal Medicine - PN: Subj *Date: 04/28/18 *Time: 19:00 Interval history: POD #1 repeat CS postop pain being managed with regular scheduled dose of po subutex (4mg BID) and she reports that pain is not being sufficiently managed. will increase dose to 8mg BID, as patient wants to avoid po narcotics if possible Lochia normal; tolerating diet and voiding without difficulty Exam Vital signs and Labs for Last 24 Hours: Temp Pulse Resp BP Pulse Ox 98.7 F 65 18 108/58 L 98 04/28/18 18:47 04/28/18 18:47 04/28/18 18:47 04/28/18 18:47 04/28/18 18:47 Laboratory Results - last 24 hr 04/28/18 05:23: Hgb 9.5 L, Hct 29.0 L I & O for Last 24 hours: Intake & Output 04/26/18 04/27/18 04/28/18 04/29/18 11:59 11:59 11:59 11:59 Intake Total 2950 / 2950 Output Total 900 / 900 Balance 2049 / 2049 - Constitutional no acute distress - *Routine Abdominal Exam Present: soft, tenderness (appropriate for postop status). Absent: guarding - *Routine Extremities Exam Present: edema (1+) - *Routine Skin Exam Present: wounds (dry/intact) - *Routine Neurological Exam Present: alert, oriented X3. Absent: altered mental status - Routine Psychiatric Exam Absent: depressed, anxious Assessment and Plan (1) 35 weeks gestation of Problem details: 35 5/7 Current visit: Yes Status: Acute Category: Medical Code(s): Z3A.35 - 35 weeks gestation of (2) affected by growth restriction Problem details: Growth 3% Current visit: Yes Status: Acute Category: Medical Code(s): O36.5990 - Maternal care for other known or suspected poor growth, unspecified trimester, not applicable or unspecified (3) Oligohydramnios in third trimester Problem details: TAMI 7.0 Current visit: Yes Status: Acute Category: Medical Code(s): O41.03X0 - Oligohydramnios, third trimester, not applicable or unspecified (4) Abnormal ultrasonic finding on screening of mother Problem details: BPP 10 (-2 breathing, -2 NST) Current visit: Yes Status: Acute Category: Medical Code(s): O28.3 - Abnormal ultrasonic finding on screening of mother (5) Uteroplacental insufficiency, third trimester Current visit: Yes Status: Acute Category: Medical Code(s): O36.5130 - Maternal care for known or suspected placental insufficiency, third trimester, not applicable or unspecified (6) 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 details: transition from heroin Current visit: No Status: Chronic Category: Medical Code(s): Z87.898 - Personal history of other specified conditions (7) complicated by subutex maintenance, antepartum Problem details: 8mg BID Current visit: No Status: Acute Category: Medical Code(s): O99.320 - Drug use complicating , unspecified trimester; F11.20 - Opioid dependence, uncomplicated; Z79.891 - penitentiary (current) use of opiate analgesic (8) HCV antibody positive Current visit: No Status: Acute Category: Medical Code(s): R76.8 - Other specified abnormal immunological findings in serum (9) Anemia complicating Problem details: Hgb 11.2 Current visit: Yes Status: Acute Category: Medical Code(s): O99.019 - Anemia complicating , unspecified trimester (10) Tobacco smoking affecting in first trimester Problem details: 1PPD Current visit: No Status: Chronic Category: Medical Code(s): O99.331 - Smoking (tobacco) complicating , first trimester (11) Previous section Current visit: No Status: Chronic Category: Surgical Code(s): Z98.891 - History of uterine scar from previous surgery (12) ASCUS with positive high risk HPV Problem details: HR HPV + (non 16/18) Current visit: No Status: Acute Category: Medical (13) Single delivery by Current visit: Yes Status: Acute Category: Medical Code(s): O82 - Encounter for delivery without indication - Assessment and plan all Dx Assessment and Plan for all problems:: routine postop care desires to avoid narcotic use postop but insufficient pain management with current dose of subutex increased dose to 8mg BID; will give additional 4mg now and begin 8mg BID with am dose tomorrow
--- NOTE | 2018-04-30 14:48 | Progress Note ---
Internal Medicine - PN: Subj *Date: 04/29/18 *Time: 14:30 Interval history: POD #2 repeat LTCS Subutex dose increased to 8mg BID lochia appropriate and dressing dry/intact Exam Vital signs and Labs for Last 24 Hours: Temp Pulse Resp BP Pulse Ox 98.0 F 72 20 99/72 L 98 04/30/18 08:00 04/30/18 08:00 04/30/18 08:00 04/30/18 08:00 04/29/18 20:20 I & O for Last 24 hours: Intake & Output 04/28/18 04/29/18 04/30/18 05/01/18 11:59 11:59 11:59 11:59 Intake Total 2950 / 2950 Output Total 900 / 900 Balance 2049 - Constitutional no acute distress - *Routine Respiratory Exam Present: CTA bilaterally - *Routine Cardiovascular Exam Present: RRR - *Routine Abdominal Exam Present: soft. Absent: tenderness, distended - *Routine Skin Exam Present: intact, dry - *Routine Neurological Exam Present: alert, oriented X3 Assessment and Plan (1) 35 weeks gestation of Problem details: 35 5/7 Current visit: Yes Status: Acute Category: Medical Code(s): Z3A.35 - 35 weeks gestation of (2) affected by growth restriction Problem details: Growth 3% Current visit: Yes Status: Acute Category: Medical Code(s): O36.5990 - Maternal care for other known or suspected poor growth, unspecified trimester, not applicable or unspecified (3) Oligohydramnios in third trimester Problem details: TAMI 7.0 Current visit: Yes Status: Acute Category: Medical Code(s): O41.03X0 - Oligohydramnios, third trimester, not applicable or unspecified (4) Abnormal ultrasonic finding on screening of mother Problem details: BPP 6/10 (-2 breathing, -2 NST) Current visit: Yes Status: Acute Category: Medical Code(s): O28.3 - Abnormal ultrasonic finding on screening of mother (5) Uteroplacental insufficiency, third trimester Current visit: Yes Status: Acute Category: Medical Code(s): O36.5130 - Maternal care for known or suspected placental insufficiency, third trimester, not applicable or unspecified (6) 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 details: transition from heroin Current visit: No Status: Chronic Category: Medical Code(s): Z87.898 - Personal history of other specified conditions (7) complicated by subutex maintenance, antepartum Problem details: 8mg BID Current visit: No Status: Acute Category: Medical Code(s): O99.320 - Drug use complicating , unspecified trimester; F11.20 - Opioid dependence, uncomplicated; Z79.891 - ad terminal makeup operator (current) use of opiate analgesic (8) HCV antibody positive Current visit: No Status: Acute Category: Medical Code(s): R76.8 - Other specified abnormal immunological findings in serum (9) Anemia complicating Problem details: Hgb 11.2 Current visit: Yes Status: Acute Category: Medical Code(s): O99.019 - Anemia complicating , unspecified trimester (10) Tobacco smoking affecting in first trimester Problem details: 1PPD Current visit: No Status: Chronic Category: Medical Code(s): O99.331 - Smoking (tobacco) complicating , first trimester (11) Previous section Current visit: No Status: Chronic Category: Surgical Code(s): Z98.891 - History of uterine scar from previous surgery (12) ASCUS with positive high risk HPV Problem details: HR HPV + (non 16/18) Current visit: No Status: Acute Category: Medical (13) Single delivery by Current visit: Yes Status: Acute Category: Medical Code(s): O82 - En counter for delivery without indication - Assessment and plan all Dx Assessment and Plan for all problems:: Continue postop care Consider increase subutex dose to 12mg but will defer until tomorrow Anticipate discharge POD #4
--- NOTE | 2018-04-30 16:37 | Progress Note ---
Internal Medicine - PN: Subj *Date: 04/30/18 *Time: 15:08 Interval history: POD #3 repeat CS Patient reports increased pain with ambulation and concerned about staying on current dose of subutex 8mg BID. Discussed the possibility of increasing dose to 12mg BID, but after long discussion with [facility], have decided not to change dose at this time because she will be switched to suboxone at her follow up appointment since she is not (Hep C positive). Plan is for discharge tomorrow on POD #4 and f/u appointment has been made with [facility] at 12:00, and they will restart her on Suboxone at that time and manage her medication going forward, so she will only be discharged with Rx for po Toradol. Exam Vital signs and Labs for Last 24 Hours: Temp Pulse Resp BP Pulse Ox 98.0 F 72 20 99/72 L 98 04/30/18 08:00 04/30/18 08:00 04/30/18 08:00 04/30/18 08:00 04/29/18 20:20 I & O for Last 24 hours: Intake & Output 04/28/18 04/29/18 04/30/18 05/01/18 11:59 11:59 11:59 11:59 Intake Total 2950 / 2950 Output Total 900 / 900 Balance 2049 Assessment and Plan (1) 35 weeks gestation of Problem details: 35 5/7 Current visit: Yes Status: Acute Category: Medical Code(s): Z3A.35 - 35 weeks gestation of (2) affected by growth restriction Problem details: Growth 3% Current visit: Yes Status: Acute Category: Medical Code(s): O36.5990 - Maternal care for other known or suspected poor growth, unspecified trimester, not applicable or unspecified (3) Oligohydramnios in third trimester Problem details: TAMI 7.0 Current visit: Yes Status: Acute Category: Medical Code(s): O41.03X0 - Oligohydramnios, third trimester, not applicable or unspecified (4) Abnormal ultrasonic finding on screening of mother Problem details: BPP 6/10 (-2 breathing, -2 NST) Current visit: Yes Status: Acute Category: Medical Code(s): O28.3 - Abnormal ultrasonic finding on screening of mother (5) Uteroplacental insufficiency, third trimester Current visit: Yes Status: Acute Category: Medical Code(s): O36.5130 - Maternal care for known or suspected placental insufficiency, third trimester, not applicable or unspecified (6) 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 details: transition from heroin Current visit: No Status: Chronic Category: Medical Code(s): Z87.898 - Personal history of other specified conditions (7) complicated by subutex maintenance, antepartum Problem details: 8mg BID Current visit: No Status: Acute Category: Medical Code(s): O99.320 - Drug use complicating , unspecified trimester; F11.20 - Opioid dependence, uncomplicated; Z79.891 - intermediate (current) use of opiate analgesic (8) HCV antibody positive Current visit: No Status: Acute Category: Medical Code(s): R76.8 - Other specified abnormal immunological findings in serum (9) Anemia complicating Problem details: Hgb 11.2 Current visit: Yes Status: Acute Category: Medical Code(s): O99.019 - Anemia complicating , unspecified trimes ter (10) Tobacco smoking affecting in first trimester Problem details: 1PPD Current visit: No Status: Chronic Category: Medical Code(s): O99.331 - Smoking (tobacco) complicating , first trimester (11) Previous section Current visit: No Status: Chronic Category: Surgical Code(s): Z98.891 - History of uterine scar from previous surgery (12) ASCUS with positive high risk HPV Problem details: HR HPV + (non 16/18) Current visit: No Status: Acute Category: Medical (13) Single delivery by Current visit: Yes Status: Acute Category: Medical Code(s): O82 - Encounter for delivery without indication
--- NOTE | 2018-05-01 10:27 | Discharge Summary ---
General - General Admission date:: 04/18/18 Discharge date: 05/01/18 HPI HPI: (now P2002) admitted @ 35 5/7 weeks with non-reassuring testing. complicated by chronic hepatitis C, h/o IV drug abuse with current subutex maintenance (managed per [facility]), tobacco abuse, previous CS and mild anemia. ultrasound for growth scheduled at 34-35 wks and showed IUGR at 3% but normal TAMI and normal UA dopplers. BPP was 8/8. She was scheduled for a f/u ultrasound with [facility] in [place] to confirm IUGR < 5% and twice weekly NST. She presented for NST in triage at [facility] on friday04/18/18 and was noted to have minimal variability and was not reactive. There were a few possible mild late decelerations noted, but no contractions were seen on the monitor strip in order to label them as late dec elerations. Ultrasound was called in for BPP and the score was 6/8 (-2 breathing), which was actually 6/10 when combined with the NST. TAMI was also in range of oligohydramnios at 7cm. She was admitted for observation with a concern for possible need for early delivery if status worsened, and ultimately the decision was made to keep her in house until delivery by scheduled CS at 37w or earlier for any decline in status by testing. She was initially monitored continuously, but ultimately monitoring showed enough stability to change this to TID NST monitoring with twice weekly BPP. Her current subutex dose of 4mg BID was continued and she was given FeSO4 supplementation and nicotine patch as well. Repeat CS was performed on 04/27/18 at 37 wks, and was uncomplicated. Postop course progressed to normal ambulation, regular diet and voiding without difficulty. Postoperative pain management was difficult, as patient wanted to avoid narcotic medication in light of her recovery. Subutex dose was increased to 8mg BID and was still insufficiently managing her pain. On POD #3 we discussed the possibility of increasing this dose to 12mg BID, but in light of anticipated discharge on POD #4, along with the new information that she would now be managed by the clinic with Suboxone instead of Subutex (due to regulations and her inability to breastfeed secondary to Hep C + status), she agreed that there was minimal benefit to any dose change and was continued on the 8mg BID dose. She is discharged home on POD #4 and [facility] for further management and Rx. Her female is doing well but will continue to remain inpatient for 1 additional day as a precaution with regards to potential withdrawal. She will f/u in office 1-2 wks for incision check. Hospital Course Hospital Course: as documented in HPI Rhogam Administration: Not Indicated Objective Vital signs: Temp Pulse Resp BP Pulse Ox 98.0 F 72 20 99/72 L 98 04/30/18 08:00 04/30/18 08:00 04/30/18 08:00 04/30/18 08:00 04/29/18 20:20 no acute distress, cooperative - *Routine HEENT Exam Head: Present: normocephalic, atraumatic Eye: Absent: conjunctival icterus, scleral injection ENT: Present: mucous membranes moist - *Routine Respiratory Exam Absent: respiratory distress - *Routine Cardiovascular Exam Absent: tachycardia - *Routine Abdominal Exam Present: soft, tenderness. Absent: distended, guarding - *Routine Extremities Exam Present: edema (1+) - *Routine Skin Exam Present: wounds (dry; intact with anthony) - *Routine Neurological Exam Present: alert, oriented X3. Absent: altered mental status - Routine Psychiatric Exam Present: normal affect, good judgment. Absent: depressed, anxious DS: Diagnosis - Discharge Diagnosis (1) 35 weeks gestation of Status: Acute Problem details: 35 5/7 (2) affected by growth restriction Status: Acute Problem details: Growth 3% (3) Oligohydramnios in third trimester Status: Acute Problem details: TAMI 7.0 (4) Abnormal ultrasonic finding on screening of mother Status: Acute Problem details: BPP 6/10 (-2 breathing, -2 NST) (5) Uteroplacental insufficiency, third trimester Status: Acute (6) Hx of intravenous drug use in remission Status: Chronic Problem details: transition from heroin (7) complicated by subutex maintenance, antepartum Status: Acute Problem details: 8mg BID (8) HCV antibody positive Status: Acute (9) Anemia complicating Status: Acute Problem details: Hgb 11.2 (10) Tobacco smoking affecting in first trimester Status: Chronic Problem details: 1PPD (11) Previous section Status: Chronic (12) ASCUS with positive high risk HPV Status: Acute Problem details: HR HPV + (non 16/18) (13) Single delivery by Status: Acute Discharge Plan - Patient Discharge Instructions ACTIVITY: Continue current activity, Limited activity, No heavy lifting DIET: regular diet Additional Instructions: Nothing in the vagina for 6 weeks, no heavy lifting or strenuous activity, and no driving for 2 weeks. No tub baths for 6 weeks. Patient Instructions: How to Care for a Surgical Wound, Depression, , Hemorrhage, Drug Withdrawal, DI for Drug Withdrawal, Ketorolac, [facility] Post Discharge Instructions - Follow up Plan Follow up with: Catrina Haynes MD [Staff Physician] - 05/11/18 10:30 am Disposition: Home, Self-Jail Medications: Home Medications Medication Instructions Recorded Confirmed Type buprenorphine HCl 8 mg sublingual 4 mg SUBLINGUAL BID 10/22/17 04/19/18 History tablet 1 tab PO BID tab 10/22/17 04/19/18 History vitamin,calcium,bboqjmit-ctey-ptjgs acid tablet Prescriptions/Medication Reconciliation: New Nicotine [Nicoderm 7mg/24hrs patch] 7 mg TD DAILYP PRN patch.td24 PRN Reason: Nicotine Cravings Ketorolac Tromethamine [Toradol 10mg tablet] 10 mg PO Q6H #30 tab Continue vitamin,calcium,uumydstd-stuv-uxjou acid tablet 1 tab PO BID tab Discontinued buprenorphine HCl 8 mg sublingual tablet 4 mg SUBLINGUAL BID
== END 2018-05-01 11:25 | disposition home or self-care (01) ==
LOC: OBOUT 12:02 → OB 12:02 → OBSVTOIN 16:08 → OB 16:16
PROVIDERS: ADMIT Obstetrics & Gynecology; ATTEND Obstetrics & Gynecology

== ENCOUNTER 2021-10-29 18:59 | Emergency (ER) | payer BC, SELFPAY ==
[2021-10-29 19:00] VITALS: BP 130/84; PULSE 74; RESP 16; TEMP 37; O2SAT 98; BMI 27.4
--- NOTE | 2021-10-29 19:25 | HMH.EDGENADL ---
ED Disposition Condition on Discharge: Fair - Critical Care Critical Care Time: No <AsherMichael - Last Filed: 10/29/21 19:52> Condition on Discharge: Good Time of Disposition: 20:47 - Critical Care Critical Care Time: No <Claudia Coleman - Last Filed: 10/29/21 20:48> Clinical Impression: Complete , Vaginal bleeding Disposition: Home, Self-Care Instructions: DI for Vaginal Bleeding Additional Instructions: You have been evaluated for vaginal bleeding, positive home test. Your test today is negative. Beta hCG is undetectable. It is very important that you follow-up with your [employer] SD ANALYST, Dr. Haynes within 24 to 48 hours for recheck. Tylenol and Motrin are okay for pain and cramping. Return to the emergency department at once for any new or worsening symptoms, bleeding, pain, other concerns. Referrals: Provider,Suasnna, [Primary Care Provider] - Catrina Haynes MD [Staff Physician] - Attestation: On 10/29/21, the high probability of a clinically significant, sudden or life threatening deterioration of the following system(s) required my full and direct attention, intervention and personal management. The time I documented below is in addition to time spent performing reported procedures but includes the following listed in this critical care notation. Medical Decision Making - Medical Records Medical records reviewed: Yes: I reviewed the patient's medical records. - [place] Inquiry Pt receiving controlled substance: No - Lab Data Result diagrams: 10/29/21 19:25 10/29/21 19:25 - Reevaluation(s) Time: 19:53 <AsherMichael - Last Filed: 10/29/21 19:52> - Lab Data Result diagrams: 10/29/21 19:25 10/29/21 19:25 <Claudia Coleman - Last Filed: 10/29/21 20:48> Vital Signs: 10/29/21 19:00 Temperature 98.6 F Temperature Source Oral Pulse Rate [Left Radial] 74 Respiratory Rate 16 Blood Pressure [Right Arm] 130/84 Blood Pressure Mean [Right Arm] 99 Blood Pressure Source [Right Arm] Automatic Cuff Blood Pressure Position [Right Arm] Standing 02 Sat by Pulse Oximetry 98 Oxygen Delivery Method Room Air - Lab Data Lab Results 10/29/21 19:25: Urine Color Yellow, Urine Appearance Clear, Urine pH 6.0, Ur Specific [place] <= 1.005, Urine Protein Negative, Urine Glucose (UA) Negative, Urine Ketones Negative, Urine Blood 3+, Urine Nitrate Negative, Urine Bilirubin Negative, Urine Urobilinogen 0.2, Ur Leukocyte Esterase Trace, Urine RBC Occasional, Urine WBC None, Ur Squamous Epith Cells 3-5, Urine Bacteria Trace 10/29/21 19:25: WBC 7.4, RBC 4.41, Hgb 13.6, Hct 41.9, MCV 95.0, MCH 30.9, MCHC 32.5, RDW 14.1, Plt Count 284, MPV 9.1, Neut % (Auto) 42.4, Lymph % (Auto) 47.7, [place] % (Auto) 5.7, Eos % (Auto) 1.6, Baso % (Auto) 2.6 H, Neut # (Auto) 3.1, Lymph # (Auto) 3.5, [place] # (Auto) 0.4, Eos # (Auto) 0.1, Baso # (Auto) 0.2 10/29/21 19:25: Urine HCG, Qual Negative 10/29/21 19:25: Sodium 139, Potassium 3.8, Chloride 104, Carbon Dioxide 28, Anion Gap 10.8, BUN 8, Creatinine 0.70, Estimated Creat Clear 133, Estimated GFR 98, Est GFR ( Amer) 118, Glucose 116 H, Calcium 9.7, Total Bilirubin 0.4, AST 28, ALT 17, Alkaline Phosphatase 58, Total Protein 7.8, Albumin 4.5, Globulin 3.3 H, Albumin/Globulin Ratio 1.4, HCG, Quant < 2 Orders (Tests/Meds): ED MEDICATIONS Generic Name Dose Route Start Last Admin Trade Name Freq PRN Reason Stop Dose Admin Lactated Ringer's 1,000 mls @ 999 mls/hr 10/29/21 19:15 10/29/21 19:20 Lactated Ringer's 1000 Ml Bag IV 10/29/21 20:15 999 mls/hr .Q1H1M BAIRON Administration Discontinued Medications Generic Name Dose Route Start Last Admin Trade Name Freq PRN Reason Stop Dose Admin Acetaminophen 1,000 mg 10/29/21 19:13 10/29/21 19:20 Acetaminophen 500mg Tab PO 10/29/21 19:14 1,000 mg ONCE ONE Administration - Reevaluation(s) Reevaluation #1: On reevaluation, patient is feeling much better. Repeat abdominal exam i
[2021-10-29 19:38] LABS: Microscopic, Urine URINE MICROSCOPIC (MICROSCOPIC)
[2021-10-29 19:41] LABS: Appearance,Urine CLEAR (Clear); Bilirubin,Urine Negative (Negative); Blood, Urine 3+ (Negative); Color,Urine YELLOW (Yellow); Glucose,Urine (UA) Negative (Negative); Ketones,Urine Negative (Negative); Leukocyte Esterase,Urine TRACE (Negative); Nitrate,Urine Negative (Negative); Protein,Urine Negative (Negative); Specific Gravity, Urine <= 1.005 (1.005-1.030); Urobilinogen,Urine 0.2 EU/dl (0.2)
[2021-10-29 19:42] LABS: Chloride 104 mmol/L (98-107); Potassium 3.8 mmoL/L (3.5-5.1); Sodium 139 mmol/L (136-145)
[2021-10-29 19:45] LABS: Alanine Aminotransferase 17 U/L (12-78); Albumin Level 4.5 g/dl (3.5-5.0); Albumin/Globulin Ratio 1.4 (1.1-1.8); Alkaline Phosphatase 58 U/L (38-126); Anion Gap 10.8 mEq/L (5-15); Aspartate Amino Transferase 28 U/L (14-36); Basophils # 0.2 K/mm3 (0-0.2); Basophils % 2.6 % (0.1-2.0); Bilirubin,Total 0.4 mg/dl (0.2-1.3); Blood Urea Nitrogen 8 mg/dl (7-17); Carbon Dioxide 28 mmol/L (22.0-30.0); Creatinine Clearance Estimated 133 mL/min (50-200); Eosinophils # 0.1 K/mm3 (0.0-0.4); Eosinophils % 1.6 % (0.1-12.0); Estimated Glomerular Filt Rate 98 ml/min (>60); GFR (African American) 118 ML/MIN (>60); Globulin 3.3 g/dL (1.3-3.2); Hematocrit 41.9 % (37.0-47.0); Hemoglobin 13.6 g/dL (12.2-16.2); Lymphocytes # 3.5 K/mm3 (0.7-4.5); Lymphocytes % 47.7 % (10-50); Mean Corpuscular HGB Conc 32.5 g/dL (31.8-35.4); Mean Corpuscular Hemoglobin 30.9 pg (27.0-31.2); Mean Platelet Volume 9.1 fl (7.4-10.4); Monocytes # 0.4 K/mm3 (0.1-1.0); Monocytes % 5.7 % (1.7-9.3); Neutrophils # 3.1 K/mm3 (1.8-7.8); Neutrophils % 42.4 % (37.0-80.0); Platelet Count 284 K/mm3 (142-424); Red Blood Count 4.41 M/mm3 (4.20-5.40); Red Cell Distribution Width 14.1 % (11.5-17.5); Total Protein,Serum 7.8 g/dl (6.3-8.2); Urine Pregnancy, HCG Qual. Negative (Negative); White Blood Count 7.4 K/mm3 (4.8-10.8)
[2021-10-29 19:46] LABS: Calcium 9.7 mg/dl (8.4-10.2); Glucose 116 mg/dl (74-100)
[2021-10-29 19:51] LABS: Bacteria,Urine Trace /lpf; RBC,Urine Occasional #/hpf (0-3)
[2021-10-29 20:03] LABS: HCG,Quantitative < 2 mIU/ml (0-5.42)
[2021-10-29 21:17] VITALS: BP 129/76; PULSE 88; RESP 18; TEMP 36.9; O2SAT 98
== END 2021-10-29 21:22 | disposition home or self-care (01) ==
PROVIDERS: Emergency Provider Emergency Medicine
DX: O03.9 Complete or unspecified spontaneous abortion without complication (principal); F17.210 Nicotine dependence, cigarettes, uncomplicated
CPT/HCPCS: 80053; 81001; 81025; 84702; 85025; 96360; 99284

== ENCOUNTER → 2021-12-21 09:18 | Outpatient (CLI) | payer BC, SELFPAY ==
[2021-12-21 09:55] LABS: HCG,Quantitative 503 mIU/ml (0-5.42)
== END ==
PROVIDERS: Visit Provider Obstetrics & Gynecology
DX: N91.2 Amenorrhea, unspecified (principal)
CPT/HCPCS: 36415; 84702

== ENCOUNTER → 2021-12-24 10:54 | Outpatient (CLI) | payer BC, SELFPAY ==
[2021-12-24 12:06] LABS: HCG,Quantitative 2094 mIU/ml (0-5.42)
== END ==
PROVIDERS: Visit Provider Obstetrics & Gynecology
DX: N91.2 Amenorrhea, unspecified (principal)
CPT/HCPCS: 36415; 84702

== ENCOUNTER → 2022-01-04 13:36 | Outpatient (CLI) | payer BC, SELFPAY ==
--- NOTE | 2022-01-04 13:39 | US_ITS ---
FINAL REPORT CLINICAL HISTORY: dates FINDINGS: Sonographic images of the pelvis were obtained. There is a single live in intrauterine . Yolk sac is identified. The crown-rump length measures 0.55 cm corresponding to 6 week, 3 day gestation. Heart rate is identified at 120 beats per minute. The right ovary measures 2.95 x 1.73 cm. The left ovary measures 4.7 x 3.9 x 2.6 cm. There is a 2.9 cm cyst in the left ovary. IMPRESSION: Single living intrauterine corresponding to 6 week 3 day gestation. Reviewed, Interpreted and Dictated by Twin Marlow III, MD Transcribed by Bonnie Marino Authenticated and [facility]
== END ==
PROVIDERS: Visit Provider Obstetrics & Gynecology
DX: Z34.90 Encounter for supervision of normal pregnancy, unspecified, unspecified trimester (principal)
CPT/HCPCS: 76801

== ENCOUNTER → 2022-01-07 12:24 | Outpatient (CLI) | payer BC, SELFPAY ==
[2022-01-07 13:10] LABS: Basophils # 0.1 K/mm3 (0-0.2); Basophils % 0.9 % (0.1-2.0); Eosinophils # 0.1 K/mm3 (0.0-0.4); Eosinophils % 1.3 % (0.1-12.0); Hematocrit 36.7 % (37.0-47.0); Hemoglobin 11.9 g/dL (12.2-16.2); Lymphocytes # 1.9 K/mm3 (0.7-4.5); Lymphocytes % 30.7 % (10-50); Mean Corpuscular HGB Conc 32.4 g/dL (31.8-35.4); Mean Corpuscular Hemoglobin 30.5 pg (27.0-31.2); Mean Corpuscular Volume 94.3 fl (81-99); Mean Platelet Volume 8.6 fl (7.4-10.4); Monocytes # 0.4 K/mm3 (0.1-1.0); Neutrophils # 3.8 K/mm3 (1.8-7.8); Neutrophils % 61.2 % (37.0-80.0); Platelet Count 273 K/mm3 (142-424); Red Blood Count 3.89 M/mm3 (4.20-5.40); White Blood Count 6.3 K/mm3 (4.8-10.8)
[2022-01-07 13:30] LABS: Chloride 105 mmol/L (98-107)
[2022-01-07 13:31] LABS: Potassium 3.8 mmoL/L (3.5-5.1); Sodium 136 mmol/L (136-145)
[2022-01-07 13:33] LABS: Alanine Aminotransferase 11 U/L (12-78); Albumin Level 4.1 g/dl (3.5-5.0); Alkaline Phosphatase 47 U/L (38-126); Aspartate Amino Transferase 21 U/L (14-36); Bilirubin,Total 0.2 mg/dl (0.2-1.3); Blood Urea Nitrogen 5 mg/dl (7-17); Estimated Glomerular Filt Rate 143 ml/min (>60); GFR (African American) 173 ML/MIN (>60)
[2022-01-07 13:34] LABS: Albumin/Globulin Ratio 1.6 (1.1-1.8); Anion Gap 9.8 mEq/L (5-15); Calcium 9.3 mg/dl (8.4-10.2); Carbon Dioxide 25 mmol/L (22.0-30.0); Globulin 2.5 g/dL (1.3-3.2); Glucose 97 mg/dl (74-100); Total Protein,Serum 6.6 g/dl (6.3-8.2)
[2022-01-08 08:38] LABS: HIV Screen 4th Generation wRfx Non Reactive (Non Reactive); Hepatitis B Surface Antigen Negative (Negative); Hepatitis C Antibody >11.0 s/co ratio (0.0-0.9)
[2022-01-08 11:12] LABS: Rapid Plasma Reagin Ab Titer Non Reactive (NonRea<1:1)
== END ==
PROVIDERS: Visit Provider Obstetrics & Gynecology
DX: Z34.90 Encounter for supervision of normal pregnancy, unspecified, unspecified trimester (principal); R76.8 Other specified abnormal immunological findings in serum
CPT/HCPCS: 36415; 80053; 85025; 86592; 86703; 86762; 86850; 87340; 87380; 87522; G0432

== ENCOUNTER → 2022-01-22 06:04 | Outpatient (CLI) | payer BC, SELFPAY ==
[2022-01-23 22:09] LABS: Neisseria gonorrhoeae, NAA Negative (Negative)
== END ==
PROVIDERS: Visit Provider Obstetrics & Gynecology
DX: Z34.90 Encounter for supervision of normal pregnancy, unspecified, unspecified trimester (principal)
CPT/HCPCS: 87491; 87591

== ENCOUNTER → 2022-04-04 12:56 | Outpatient (CLI) | payer BC, SELFPAY ==
--- NOTE | 2022-04-04 13:01 | US_ITS ---
FINAL REPORT CLINICAL HISTORY: 20 week anatomy scan FINDINGS: There is a single live intrauterine gestation. Presentation is breech. The cervix is closed and measures 3.2 cm. Placenta is posterior, grade 1. movement is noted. Heart rate is 146 beats per minute. Three-vessel cord with satisfactory umbilical cord insertion. Four-chamber heart is noted. brain and ventricles are unremarkable. Chest and diaphragm are unremarkable. ABDOMEN: Both kidneys are unremarkable. Stomach is unremarkable. SPINE: No anomalies identified. Both arms and legs noted. AMNIOTIC FLUID: Appropriate amount. MEASUREMENTS: ULTRASOUND AGE: 19 weeks 3 days. GESTATION AGE: 19 weeks 2 days. ESTIMATED WEIGHT: 302 g GROWTH PERCENTILE: 64% LMP percentile BPD: 4.4 cm corresponding with 19 weeks 2 days. OFD: 5.8 cm corresponding with 20 weeks 0 days. HC: 16.1 cm corresponding with 19 weeks 0 days. AC: 15.0 cm corresponding with 20 weeks 2 days. FL: 2.9 cm corresponding with 19 weeks 1 days. CEREBELLUM: 2.0 cm corresponding with 20 weeks 1 days. HUMERUS: 2.8 cm corresponding with 19 weeks 0 days. HC/AC: 1.07 CI: 75% FL/BPD: 67% FL/AC: 20% IMPRESSION: Single living IUP with an ultrasound age of 19 weeks 3 days. No anomalies noted. Reviewed, Interpreted and Dictated by Twin Marlow III, MD Transcribed by Marta Jean Authenticated and [facility]
== END ==
PROVIDERS: PCP Physician Assistant; Visit Provider Obstetrics & Gynecology
DX: Z34.90 Encounter for supervision of normal pregnancy, unspecified, unspecified trimester (principal); Z3A.20 20 weeks gestation of pregnancy
CPT/HCPCS: 76811

== ENCOUNTER 2022-04-05 20:56 | Emergency (ER) | payer BC, SELFPAY ==
[2022-04-05 20:58] VITALS: BP 117/64; PULSE 72; RESP 18; TEMP 36.7; O2SAT 98; BMI 27.4
[2022-04-05 21:02] VITALS: BP 117/64; PULSE 71; O2SAT 100
--- NOTE | 2022-04-05 21:05 | HMH.EDGENADL ---
Discharge Plan Disposition Patient Disposition: Home, Self-Care Chief Complaint: Eye Problems Prescriptions Prescriptions: No Action Classic 28 mg iron- 800 mcg tablet PO DAILY buprenorphine HCl 8 mg tablet, sublingual 8 mg SL DAILY Referrals Follow up/Referrals: Lily Tejada PA [Primary Care Provider] - See instructions Filipe Reeves OD [Referring] - See instructions Activity Restrictions/Add. Instructions Additional Instructions/Restrictions: Continue to use antibiotic ointment 4 times per day. See insulation cupola charger within 48hours. Return to the emergency department if your symptoms worsen. You may take ibuprofen and tylenol at home for pain. Clinical Impressions Clinical Impression: Abrasion of conjunctiva, right Instructions Patient Instructions: DI for Eye Pain Discharge ED Provider: Dahlia Beard General Adult HPI General Chief complaint: Eye Problems Stated complaint: AO 04/05 @1600 CACTUS HIT R EYE Time Seen by Provider: 04/05/22 21:46 Mode of Arrival: Ambulatory Source of Information: Patient Limitations: No Limitations History of Present Illness HPI narrative: Patient is a previously healthy 31-year-old female presenting with a chief complaint of right eye pain. Patient states she was repotting a cactus and the liquid squirted into her right eye. She has attempted irrigation at home but has severe pain and photophobia. No additional complaints. Does not wear contact lenses. Onset (ago): hour(s) Location: head (right eye) Severity: moderate Quality: burning Related Data Home Medications Medication Instructions Recorded Confirmed vits no.126-ferrous fum tab PO DAILY 12/21/21 04/04/22 28 mg iron-folic acid 800 mcg tablet (Classic ) buprenorphine HCl 8 mg sublingual 8 mg sublingual DAILY 01/07/22 04/04/22 tablet Allergies Allergy/AdvReac Type Severity Reaction Status Date / Time No Known Allergies Allergy Verified 04/04/22 14:10 [facility] Medical History Buprenorphine maintenance treatment affecting , antepartum Carrier of fragile X chromosome Surgical History History of Social History Smoking Status: Current every day smoker tobacco type: cigarettes packs per day: 1 alcohol intake: never substance use type: former substance user current occupational status: unemployed Travel in the last 8 weeks: None ROS Obtained: Yes Systems reviewed as appropriate & no additional complaints except as documented Eyes Eyes: Denies blurry vision, Denies change in vision, Reports irritation, Reports eye pain and Reports photophobia Comments: Right eye redness and pain Physical Exam General General appearance: alert and in no apparent distress Eye Eye exam: Present other (EOMI. Pupils are round and reactive. Right eye conjuctival injection but no ecchymosis of FB visualized under slit lamp exam. Uptake in the limbal region at 9 o'clock and 3 o'clock without Ming sign or FB. pH is 7. ) Respiratory Respiratory exam: Present other (Normal respiratory effort ) Cardiovascular Cardiovascular exam: Present regular rate and normal rhythm Neurological Exam Neurological exam: Present alert and oriented X3 Medical Decision Making [place] Inquiry Pt receiving controlled substance: No Vital Signs: 04/05/22 20:58 04/05/22 21:02 Temperature 98.1 F Temperature Source Oral Pulse Rate 71 Pulse Rate [Right] 72 Respiratory Rate 18 Blood Pressure 117/64 Blood Pressure [Right Arm] 117/64 Blood Pressure Mean [Right Arm] 81 Blood Pressure Source [Right Arm] Automatic Cuff 02 Sat by Pulse Oximetry 98 100 Oxygen Delivery Method Room Air Room Air Medical Decision Narrative: 31yo F w/cc of right eye pain s/p liquid from cactus. Differential lashawn
--- NOTE | 2022-04-05 21:16 | PC.NURSE ---
ER Dr speaking with pt at this time. Eye box sitting at bedside for Dr at this time.
--- NOTE | 2022-04-05 21:44 | PC.NURSE ---
MD & this RN at bedside, placed dima lens to pt and set irrigation rate with 1L LR.
--- NOTE | 2022-04-05 22:32 | PC.NURSE ---
Dr. Gonzalez at BS
[2022-04-05 23:01] VITALS: BP 132/70; PULSE 81; RESP 19; TEMP 36.5; O2SAT 98
== END 2022-04-05 23:03 | disposition home or self-care (01) ==
PROVIDERS: Emergency Provider Emergency Medicine; PCP Physician Assistant
DX: S05.01XA Injury of conjunctiva and corneal abrasion without foreign body, right eye, initial encounter (principal)
CPT/HCPCS: 99282

== ENCOUNTER → 2022-05-27 08:28 | Outpatient (CLI) | payer BC, SELFPAY ==
[2022-05-27 08:54] LABS: Glucose,Fasting 78 mg/dl (74-100)
[2022-05-27 10:26] LABS: Glucose 1 Hour 106 mg/dL (74-100)
== END ==
PROVIDERS: PCP Physician Assistant; Visit Provider Obstetrics & Gynecology
DX: Z34.90 Encounter for supervision of normal pregnancy, unspecified, unspecified trimester (principal); Z3A.22 22 weeks gestation of pregnancy
CPT/HCPCS: 36415; 82951

== ENCOUNTER 2022-06-30 14:02 | Emergency (ER) | payer BC, SELFPAY ==
[2022-06-30 14:30] VITALS: BP 118/88; PULSE 71; RESP 20; TEMP 37.2; O2SAT 99; BMI 28.3
--- NOTE | 2022-06-30 14:35 | EXP.UTC ---
Discharge Plan Disposition Patient Disposition: Home, Self-Care Condition: Good Prescriptions Prescriptions: New cephalexin 500 mg capsule 500 mg PO QID Qty: 7 0RF No Action Classic 28 mg iron- 800 mcg tablet PO DAILY buprenorphine HCl 8 mg tablet, sublingual 8 mg SL DAILY Referrals Follow up/Referrals: Lily Tejada PA [Primary Care Provider] - See instructions Activity Restrictions/Add. Instructions Additional Instructions/Restrictions: Keep the wound clean and dry. Keep a dressing on it if you are going to be getting it dirty. Watch the wound for signs of infection, such as redness, swelling, drainage, fever. etc. Take tylenol for pain. Follow up your her regular doctor. Return in 7 to 10 days to have the sutures removed. GO TO THE ER FOR ANY WORSENING SYMPTOMS OR CONCERNS. 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 She is 32 weeks . Related Data Home Medications Medication Instructions Recorded Confirmed vits no.126-ferrous fum tab PO DAILY 12/21/21 06/14/22 28 mg iron-folic acid 800 mcg tablet (Classic ) buprenorphine HCl 8 mg sublingual 8 mg sublingual DAILY 01/07/22 06/14/22 tablet Previous Rx's Medication Instructions Recorded cephalexin 500 mg capsule 500 mg PO QID #7 caps 06/30/22 Allergies Allergy/AdvReac Type Severity Reaction Status Date / Time No Known Allergies Allergy Verified 06/14/22 09:34 [facility] Disclaimer: The information contained in this section may have been updated after the patient was seen, as this information can be updated by other users. 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 Tobacco use Surgical History History of Social History Smoking Status: Current every day smoker tobacco type: cigarettes packs per day: 1 alcohol intake: never substance use type: former substance user current occupational status: unemployed Travel in the last 8 weeks: None ROS Obtained: Yes All systems reviewed & no additional complaints except as documented Constitutional Constitutional: Denies chills and Denies fever(s) Eyes Eyes: Denies eye discharge ENT Ears, Nose, Mouth, and Throat: Denies dizziness, Denies otalgia and Denies sore throat Cardiovascular Cardiovascular: Denies chest pain Respiratory Respiratory: Denies shortness of breath, Denies chest congestion, Denies cough, Denies stridor and Denies wheezing Gastrointestinal Gastrointestingal: Denies nausea or vomiting Musculoskeletal Musculoskeletal: Reports system reviewed and no additional complaints, except as documented and Denies arthralgias Integumentary/Breasts Skin/Breast: Reports as per HPI Neurologic Neurologic: Denies dizziness and Denies paresthesias Allergic/Immunologic Allergic/Immunologic: Denies wheezing Physical Exam General General appearance: alert and in no apparent distress Head Head exam: atraumatic, normocephalic and normal inspection Eye Eye exam: Present normal appearance, PERRL and EOMI ENT ENT exam: Present normal exam, normal oropharynx, mucous membranes moist, TM's normal bilaterally and normal external ear exam Neck Neck exam: Present normal inspection, full ROM and trachea midline; Absent meningismu
[2022-06-30 15:21] VITALS: BP 118/88; PULSE 71; RESP 20; TEMP 37.2; O2SAT 99
== END 2022-06-30 16:30 | disposition home or self-care (01) ==
PROVIDERS: Emergency Provider Nurse Practitioner Family; PCP Physician Assistant
DX: S61.411A Laceration without foreign body of right hand, initial encounter (principal); Z23 Encounter for immunization; Z33.1 Pregnant state, incidental; W25.XXXA Contact with sharp glass, initial encounter
CPT/HCPCS: 12002; 90471; 90715; 99212; 99213; G0463

== ENCOUNTER → 2022-07-09 12:51 | Outpatient (CLI) | payer BC, SELFPAY ==
--- NOTE | 2022-07-09 12:51 | US_ITS ---
FINAL REPORT CLINICAL HISTORY: sga and TAMI FINDINGS: TRANSABDOMINAL ULTRASOUND There is a single live intrauterine gestation. Presentation is cephalic. The cervix is closed and measures 4 cm. Placenta is posterior, grade 1. Cardiac activity is confirmed at 130 bpm. Fetus is active. TAMI: 14 cm MEASUREMENTS: ULTRASOUND AGE: 32 weeks 3 days. GESTATION AGE: 33 weeks 0 days. ESTIMATED WEIGHT: 1878 grade GROWTH PERCENTILE: 15% LMP percentile HC/AC: 1.06 CI: 79% FL/BPD: 76% FL/AC: 22% BPD: 8.2 cm corresponding with 33 weeks 0 days. OFD: 10.3 cm corresponding with 32 weeks 2 days. HC: 29.3 cm corresponding with 32 weeks 3 days. AC: 27.6 cm corresponding with 31 weeks 5 days. FL: 6.2 cm corresponding with 32 weeks 1 days. BREATHIN/2 MOVEMENT: 2/2 TONE: 2/2 FLUID VOLUME: 2/2 BPP SCORE: 8/8 IMPRESSION: Single living IUP with an ultrasound age of 32 weeks 3 days. BPP SCORE: 8/8 TAMI: 14 cm Reviewed, Interpreted and Dictated by Twin Marlow III, MD Transcribed by Marta Jean Authenticated and [facility]
== END ==
PROVIDERS: PCP Physician Assistant; Visit Provider Obstetrics & Gynecology
DX: O28.8 Other abnormal findings on antenatal screening of mother (principal); O36.5990 Maternal care for other known or suspected poor fetal growth, unspecified trimester, not applicable or unspecified
CPT/HCPCS: 76816; 76819

== ENCOUNTER → 2022-07-23 13:46 | Outpatient (CLI) | payer BC, SELFPAY ==
--- NOTE | 2022-07-23 13:46 | US_ITS ---
FINAL REPORT CLINICAL HISTORY: SGA FINDINGS: TRANSABDOMINAL ULTRASOUND There is a single live intrauterine gestation. Presentation is cephalic. The cervix is closed and measures 2.2 cm. Placenta is posterior and grade 2. Cardiac activity is confirmed at 135 bpm. Fetus is active. TAMI: 11.06 cm MEASUREMENTS: ULTRASOUND AGE: 34 weeks 1 days. GESTATION AGE: 35 weeks 0 days. ESTIMATED WEIGHT: 2164 g GROWTH PERCENTILE: 10% LMP percentile HC/AC: 1.07 CI: 82% FL/BPD: 73% FL/AC: 22% BPD: 8.8 cm consistent with 35 weeks 5 days. OFD: 10.8 cm consistent with 34 weeks 3 days. HC: 30.9 cm consistent with 34 weeks 4 days. AC: 28.8 cm consistent with 32 weeks 6 days. FL: 6.4 cm consistent with 33 weeks 1 days. BREATHIN/2 MOVEMENT: 2/2 TONE: 2/2 FLUID VOLUME: 2/2 BPP SCORE: 8/8 SD ratio: 3.57 IMPRESSION: Single living IUP with an ultrasound age of 34 weeks 1 days. BPP SCORE: 8/8 TAMI: 11.06 cm Reviewed, Interpreted and Dictated by Tashi Martinez MD Transcribed by Bassam Lucas Authenticated and [facility]
== END ==
PROVIDERS: PCP Physician Assistant; Visit Provider Obstetrics & Gynecology
DX: O36.5990 Maternal care for other known or suspected poor fetal growth, unspecified trimester, not applicable or unspecified (principal)
CPT/HCPCS: 76816; 76819; 76820

== ENCOUNTER → 2022-07-29 13:45 | Outpatient (CLI) | payer BC, SELFPAY | PROVIDERS: Visit Provider Obstetrics & Gynecology | DX: Z34.90 Encounter for supervision of normal pregnancy, unspecified, unspecified trimester (principal) | CPT/HCPCS: 86403 ==

== ENCOUNTER → 2022-08-08 10:52 | Outpatient (CLI) | payer BC, SELFPAY ==
--- NOTE | 2022-08-08 10:52 | US_ITS ---
FINAL REPORT CLINICAL HISTORY: BPP/ Growth TAMI sd ratio FINDINGS: There is a single live intrauterine gestation. Presentation is cephalic. The cervix is closed and measures 3.2. Placenta is posterior fundal grade 2. breathing and movement noted. SD ratio is 2.36. MEASUREMENTS: ULTRASOUND AGE: 35 weeks 6 days. GESTATION AGE: 37 weeks 2 days. ESTIMATED WEIGHT: 2634 g GROWTH PERCENTILE: 12 % BPD: 9.01 corresponding to 36 weeks 4 days. OFD: 11.27 corresponding to 37 weeks 5 days. HC: 32.05 corresponding to 36 weeks 2 days. AC: 30.90 corresponding to 34 weeks 6 days. FL: 6.87 corresponding to 35 weeks 2 days. HC/AC: 1.04 CI: 80% FL/BPD: 76% FL/AC: 22% BIOPHYSICAL PROFILE SCORE Breathin Movement: 2 Tone: 2 Fluid volume: 2 IMPRESSION: Single living IUP with an ultrasound age of 35 weeks 6 days. Biophysical profile score 8 of 8. Reviewed, Interpreted and Dictated by Tashi Martinez MD Transcribed by Bonnie Marino Authenticated and . [facility]
== END ==
PROVIDERS: PCP Obstetrics & Gynecology; Visit Provider Obstetrics & Gynecology
DX: O28.8 Other abnormal findings on antenatal screening of mother (principal); O36.5930 Maternal care for other known or suspected poor fetal growth, third trimester, not applicable or unspecified; O36.5990 Maternal care for other known or suspected poor fetal growth, unspecified trimester, not applicable or unspecified
CPT/HCPCS: 76816; 76819; 76820

== ENCOUNTER 2022-08-16 04:54 | Inpatient (IN) | payer BC, SELFPAY ==
[2022-08-16] VITALS (11 sets, daily range): BP systolic 109–138; BP diastolic 59–81; PULSE 57–74; RESP 16–18; TEMP 36.8–36.9; O2SAT 93–100; BMI 28.1
[2022-08-16 05:47] LABS: Coronavirus 19, PCR Not Detected (NotDetected); Influenza A, PCR Not Detected (NotDetected); Influenza B, PCR Not Detected (NotDetected); Microscopic, Urine URINE MICROSCOPIC (MICROSCOPIC)
[2022-08-16 05:50] LABS: Appearance,Urine CLEAR (Clear); Blood, Urine Negative (Negative); Color,Urine YELLOW (Yellow); Glucose,Urine (UA) Negative (Negative); Ketones,Urine Negative (Negative); Leukocyte Esterase,Urine Negative (Negative); Nitrate,Urine Negative (Negative); PH,Urine 6.5 (5.0-8.5); Protein,Urine Negative (Negative)
[2022-08-16 05:52] LABS: Chloride 110 mmol/L (98-107); Sodium 136 mmol/L (136-145)
[2022-08-16 05:53] LABS: Basophils # 0.1 K/mm3 (0-0.2); Basophils % 0.6 % (0.1-2.0); Eosinophils # 0.1 K/mm3 (0.0-0.4); Eosinophils % 0.9 % (0.1-12.0); Hematocrit 34.4 % (37.0-47.0); Hemoglobin 11.7 g/dL (12.2-16.2); Lymphocytes # 2.5 K/mm3 (0.7-4.5); Lymphocytes % 26.9 % (10-50); Mean Corpuscular Hemoglobin 30.6 pg (27.0-31.2); Mean Corpuscular Volume 89.9 fl (81-99); Mean Platelet Volume 9.4 fl (7.4-10.4); Monocytes # 0.5 K/mm3 (0.1-1.0); Monocytes % 4.9 % (1.7-9.3); Neutrophils # 6.1 K/mm3 (1.8-7.8); Neutrophils % 66.7 % (37.0-80.0); Platelet Count 251 K/mm3 (142-424); Potassium 3.8 mmoL/L (3.5-5.1); Red Blood Count 3.83 M/mm3 (4.20-5.40); Red Cell Distribution Width 12.8 % (11.5-17.5); White Blood Count 9.2 K/mm3 (4.8-10.8)
[2022-08-16 05:55] LABS: Alanine Aminotransferase 15 U/L (12-78); Albumin Level 3.5 g/dl (3.5-5.0); Albumin/Globulin Ratio 1.1 (1.1-1.8); Alkaline Phosphatase 181 U/L (38-126); Anion Gap 5.8 mEq/L (5-15); Aspartate Amino Transferase 31 U/L (14-36); Bilirubin,Total 0.3 mg/dl (0.2-1.3); Blood Urea Nitrogen 8 mg/dl (7-17); Calcium 8.4 mg/dl (8.4-10.2); Carbon Dioxide 24 mmol/L (22.0-30.0); Creatinine Clearance Estimated 135 mL/min (50-200); Estimated Glomerular Filt Rate 97 ml/min (>60); GFR (African American) 117 ML/MIN (>60); Globulin 3.3 g/dL (1.3-3.2); Glucose 80 mg/dl (74-100); Total Protein,Serum 6.8 g/dl (6.3-8.2)
[2022-08-16 06:01] LABS: Amphetamine/Metha Screen,Urine Negative ng/ml (<1000)
[2022-08-16 06:02] LABS: Barbiturates Screen,Urine Negative ng/ml (<200); Benzodiazepines Screen,Urine Negative ng/ml (<200)
[2022-08-16 06:03] LABS: Cannabinoid Screen,Urine Negative ng/ml (<50)
[2022-08-16 06:04] LABS: Cocaine Screen,Urine Negative ng/ml (<300); Methadone Screen,Urine Negative ng/ml (<300)
[2022-08-16 06:05] LABS: Opiate Screen,Urine Negative ng/ml (<300)
[2022-08-16 06:06] LABS: Phencyclidine Screen,Urine Negative ng/ml (<25)
[2022-08-16 06:10] LABS: Bacteria,Urine 1+ /lpf; Bilirubin,Urine Negative (Negative); Mucus,Urine 1+ /lpf; WBC,Urine Occasional #/hpf (0-3)
--- NOTE | 2022-08-16 07:03 | EXP.ANES.CKL ---
[facility] Disclaimer: The information contained in this section may have been updated after the patient was seen, as this information can be updated by other users. 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 Tobacco use Surgical History History of Family History Other Cancer Coronary artery disease Diabetes Heart attack Hyperlipidemia Hypertension Stroke Substance abuse Social History Smoking Status: Current every day smoker tobacco type: cigarettes packs per day: 1 alcohol intake: never substance use type: former substance user current occupational status: unemployed Travel in the last 8 weeks: None do you feel safe at home: Yes victim of physical abuse: No victim of emotional abuse: No victim of sexual abuse: No [facility] Anesthesia Checklist Patient Identification Patient Identification: Arm Band and Verbal (Name & ) Structural Data Admitted From: Home Planned Operative Procedure/s: c/s Consent for Planned Operative Procedure(s) Verified: Yes NPO Status Verified Time NPO: 00:00 Chart Verification Results Verified: CBC, BMP and HCG Additional verifications Patient : Yes Anesthesia Reactions: No Airway Assessment C-Spine Mobility Assessed: Yes TMJ Mobility Assessed: Yes Dentition: Good Dentition Neurological Assessment Level of Consciousness: Awake Hx Seizures: No Numbness or tingling in extremities: No Anesthesia Plan Anesthesia Risk discussed: Yes Anesthesia Plan: Verified ASA Class: II Anesthesia Type: Spinal
--- NOTE | 2022-08-16 07:35 | EXP.HP ---
History of Present Illness *Admission Date: 08/16/22 *Reason for visit:: scheduled c section *History of present illness: Elective repeat CS with tubal ligation 31 yo @ 38 3 for scheduled repeat CS AL 08/27/22; dating by 6 09/03 ultrasound care at [facility]-- Dr. Haynes complicated by chronic buprenorphine therapy, hepatitis C, growth restriction, maternal tobacco abuse and previous CS x 2 Maternal carrier screen + Fragile X, but low risk assessment for fetus GBS positive She also desired tubal ligation performed at time of delivery [facility] Disclaimer: The information contained in this section may have been updated after the patient was seen, as this information can be updated by other users. 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 Tobacco use Surgical History History of Family History Other Cancer Coronary artery disease Diabetes Heart attack Hyperlipidemia Hypertension Stroke Substance abuse Social History Smoking Status: Current every day smoker tobacco type: cigarettes packs per day: 1 alcohol intake: never substance use type: former substance user current occupational status: unemployed Travel in the last 8 weeks: None do you feel safe at home: Yes victim of physical abuse: No victim of emotional abuse: No victim of sexual abuse: No Review of Systems Constitutional Constitutional: Reports system reviewed and no additional complaints, except as documented and Denies headache(s) ENT Ears, Nose, Mouth, and Throat: Denies headache(s) *Genitourinary Genitourinary: Denies abnormal vaginal bleeding *Neurologic Neurologic: Denies headache(s) and Denies other visual disturbances Meds Home Medications and Allergies Home Medications Medication Instructions Recorded Confirmed Type vits no.126-ferrous fum 1 tab PO DAILY Supplement 12/21/21 08/16/22 History 28 mg iron-folic acid 800 mcg tablet (Classic ) buprenorphine HCl 8 mg sublingual 8 mg sublingual DAILY drug abuse 01/07/22 08/16/22 History tablet treatment New Prescriptions to Start Prescriptions: Allergies Allergy/AdvReac Type Severity Reaction Status Date / Time No Known Allergies Allergy Verified 08/13/22 08:57 Exam Data for Last 24 hours Vital signs and Labs for Last 24 Hours: Temp Pulse Resp BP Pulse Ox 98.4 F 74 17 138/67 98 08/16/22 05:44 08/16/22 05:44 08/16/22 05:44 08/16/22 05:44 08/16/22 05:44 Laboratory Results - last 24 hr 08/16/22 05:15: Urine Color Yellow, Urine Appearance Clear, Urine pH 6.5, Ur Specific [place] 1.020, Urine Protein Negative, Urine Glucose (UA) Negative, Urine Ketones Negative, Urine Blood Negative, Urine Nitrate Negative, Urine Bilirubin Negative, Urine Urobilinogen 1.0, Ur Leukocyte Esterase Negative, Urine WBC Occasional, Ur Squamous Epith Cells 3-5, Urine Bacteria 1+, Urine Mucus 1+ 08/16/22 05:15: SARS-CoV-2 (PCR) Not detected, Influenza A Untype (PCR) Not detected, Influenza Type B (PCR) Not detected 08/16/22 05:15: Urine Opiates Screen Negative, Urine Methadone Screen Negative, Ur Barbituates Screen Negative, Ur Phencyclidine Scrn Negative, Ur Amphetamines Screen Negative, U Benzodiazepines Scrn Negative, Urine Cocaine Screen Negative, U Marijuana (THC) Screen Negative 08/16/22 05:30: WBC 9.2, RBC 3.83 L, Hgb 11.7 L, Hct 34.4 L, MCV 89.9, MCH 30.6, MCHC 34.0, RDW 12.8, Plt Count 251, MPV 9.4, Neut % (Auto) 66.7, Lymph % (Auto) 26.9, Taney % (Auto) 4.9, Eos % (Auto) 0.9, Baso % (Auto) 0.6, Neut # (Auto) 6.1, Lymph # (Auto) 2.5,
[2022-08-16 08:11] LABS: Cord Blood PH 7.33 (7.35-7.45)
--- NOTE | 2022-08-16 09:29 | P.PNANES_ITS ---
[facility] Anesthesia Record Part I Anesthesia Record I Intake, IV Amount: 1,000 Estimated blood loss (mL): 1,300 Urine output (mL): 100 Blood Pressure: 134/67 SaO2: 93 Pulse Rate: 63 Respiratory Rate: 18 Temperature: 98.3 F Patient is:: Awake Stable to PACU at:: 09:27
--- NOTE | 2022-08-16 09:33 | SUR.OPER ---
0804- viable infant male born at this time Intraoperative QBL is 1250.6. MD Haynes aware, 18g placed in pt's LFA per TAYLOR Salter. 2 units of PRBC's on hold. MD Haynes does not want to give pt IM Methergen. 0927-Report given to Bay Navas RN in stable condition.
--- NOTE | 2022-08-16 11:42 | HMH.PHAINT1 ---
Pharmacy Intervention Comments: home medication list verified with Haseeb Parsons at [facility]
--- NOTE | 2022-08-16 12:27 | P.PNANES_ITS ---
[facility] Anesthesia Record Part II Anesthesia Record Part II Discharge Time: 09:57 Destination: Obstetric PACU nurse assessment reviewed?: Yes Patient Condition:: Good Anesthesia Complications:: None Swallowing reflex intact?: Yes Cyanosis?: No Blood Pressure: 109/72 Pulse Rate: 58 Temperature: 98.3 F Mental Status: Alert & Oriented Pain level:: 8 Nausea and/or vomitting:: None Intake, IV Amount: 0
--- NOTE | 2022-08-16 15:51 | P.OP_ITS ---
Date of procedure: 08/16/22 Pre-op Diagnosis:: 1. 38 3/7 weeks 2. Previous CS 3. growth restriction 4. Maternal buprenorphine dependence 5. Maternal anemia 6. Undesired fertility Post-op Diagnosis:: Same Procedure performed:: Low Transverse C Section Bilateral Tubal Ligation Surgeon:: Catrina Haynes MD Acetaldehyde Converter Operator(s):: Madelin Matthew DO SETTLEMENT WORKER:: Milton Kennedy Anesthesia: spinal Estimated blood loss (mL): 1,300 Operative findings:: grossly normal ovaries and fallopian tubes moderate vesico-uterine adhesions vigorous, living male , nuchal cord x 3 Operative note:: The patient was taken to the OR and spinal was administered without difficulty. She was prepped and draped in normal sterile fashion. A pfannenstiel skin incision was made with the scalpel and carried down to the fascia. The fascia was incised in the midline and sharply dissected off the rectus muscles. The muscles were in the midline and the peritoneum was entered sharply and extended bluntly. The Gerber-O self retaining retractor was placed in the abdomen and a bladder flap was created. The uterus was incised in the lower uterine segment in a transverse fashion and extended bluntly. Amniotomy was performed and clear fluid noted. The infant was delivered in controlled fashion, without complication or shoulder dystocia. The was vigorous at and handed to awaiting pediatricians for evaluation after cord clamped and cut. Cord blood was collected and a cord segment was preserved. The placenta was manually extracted and noted to be intact. The uterus was bleeding briskly from a large vessel inferior to the apex on the left. This was suture ligated with 2 figure of 8 sutures, with excellent hemostasis. The uterus was repaired with 0-vicryl in a running/locked fashion. The left fallopian tube was ligated with 0-chromic in 2 separate regions and the intervening segment of tube was excised with scissors. The right fallopian tube was friable at the distal end and was actively bleeding, therefore the distal segment of the fallopian tube was excised using the Enseal in order to achieve hemostasis. The entire fallopian tube was not excised because of large, engorged veins within the broad ligament extending all the way to the tube. The peritoneum was closed with 2-0 vicryl in a running fashion. The fascia was closed with #1 vicryl in a running fashion. The subcutaneous fat was closed with 2-0 vicryl in an interrupted fashion. The skin was closed with anthony. The patient tolerated the procedure well. Sponge, lap, needle and instrument counts were correct x 2. She was taken to PACU awake and in stable condition. Total estimated blood loss 1300; quantitative blood loss pending. Condition: stable Disposition: PACU Specimens:: Placenta Complications:: Hemorrhage, EBL 1300
[2022-08-17 08:44] VITALS: BP 103/59; PULSE 69; RESP 20; TEMP 36.9; O2SAT 95
[2022-08-17 09:52] LABS: Hematocrit 28.2 % (37.0-47.0); Hemoglobin 9.3 g/dL (12.2-16.2)
--- NOTE | 2022-08-17 11:59 | PC.NURSE ---
Addendum entered by Lulú Lobato 08/22/22 11:06: Infant cord screen is positive for Subutex. Addendum entered by Lulú Lobato 08/19/22 09:02: Per web ID look up this case DOES meet criteria for investigation. I contacted Carmen Contreras w/ [facility] [phone]: worker assigned to review case and stated that this case does NOT meet criteria for investigation. I will updated OB staff. Addendum entered by Vika Valle RN 08/17/22 15:55: UPDATED CABINET ON INITIATING SCORING- SCORE OF A 3. Original Note: report made to central intake- id number [id number]- spoke with angelia. Reported they would refer this to [employer] and to contact if any new updates
--- NOTE | 2022-08-17 13:52 | EXP.ACUTE.PN ---
Subjective *Date: 08/17/22 *Time: 13:52 Interval history: PPD #1 Repeat LTCS with bilateral partial salpingectomy She is doing well overall She is tolerating a regular diet without nausea/vomiting She is ambulating and voiding without difficulty She had some difficulty with pain management yesterday, which was not unexpected with chronic subutex therapy Pain management has been better today, as she has supplemented with oxycodone as needed Lochia has been appropriate and she is asymptomatic with [id number] anemia Intraoperative EBL was 1300cc, and Hgb dropped to 9.3 on POD #1 from 11.7 at admission She will be given IV iron before discharge Medical Exam Vital signs and Labs for Last 24 Hours: Vital Signs Temp Pulse Resp BP Pulse Ox 08/17/22 08:44 98.4 F 69 20 103/59 L 95 Laboratory Results - last 24 hr 08/17/22 09:22: Hgb 9.3 L, Hct 28.2 L I & O for Labs for Last 24 Hours: Intake & Output 08/15/22 08/16/22 08/17/22 08/18/22 11:59 11:59 11:59 11:59 Intake Total 1000 / 1000 0 / 0 Output Total 650 / 650 Balance 1000 / 1000 -650 / -650 Weight 164 lb Comment:: No acute distress Comment:: breathing unlabored Comment:: Regular rate, normal peripheral pulses Comments:: abdomen soft, non-distended Mild tenderness Comment:: uterine fundus firm below umbilicus Comment:: 1+ edema bilateral lower extremities Comment:: Incision dry/intact Assessment and Plan *Assessment and plan (1) 38 weeks gestation of : Status: Acute Category: Medical Code(s): Z3A.38 - 38 weeks gestation of (2) Encounter for maternal care for poor growth in rodrigues in third trimester: Status: Acute Category: Medical Code(s): O36.5930 - Maternal care for other known or suspected poor growth, third trimester, not applicable or unspecified (3) Buprenorphine maintenance treatment affecting , antepartum: Status: Acute Category: Medical Code(s): O99.320 - Drug use complicating , unspecified trimester; F11.20 - Opioid dependence, uncomplicated (4) Chronic hepatitis C affecting , antepartum: Status: Acute Category: Medical Code(s): O98.419 - Viral hepatitis complicating , unspecified trimester; B18.2 - Chronic viral hepatitis C (5) Tobacco smoking affecting : Status: Acute Category: Medical Code(s): O99.330 - Smoking (tobacco) complicating , unspecified trimester (6) Group B Streptococcus carrier, +RV culture, currently : Status: Acute Category: Medical Code(s): O99.820 - Streptococcus B carrier state complicating (7) Carrier of fragile X chromosome: Status: Acute Category: Medical Code(s): Z14.8 - Genetic carrier of other disease (8) Previous section: Problem Comment: x3 Status: Chronic Category: Surgical Code(s): Z98.891 - History of uterine scar from previous surgery (9) Status post bilateral salpingectomy: Problem Comment: BPS Status: Acute Category: Surgical Code(s): Z90.79 - Acquired absence of other genital organ(s) Plan Routine /postoperative care She will continue Subutex with additional pain medication for surgical pain PRN IV iron will be given today and she will continue po iron after discharge Nicotine patch given and tobacco cessation advised Possible discharge home tomorrow, depending on pediatric assessment of 's status and risk for withdrawal
[2022-08-18 08:30] VITALS: BP 104/62; PULSE 65; RESP 18; TEMP 36.8; O2SAT 98
--- NOTE | 2022-08-18 13:43 | EXP.DC.SUM ---
General Admission date:: 08/16/22 HPI HPI HPI: Elective repeat CS with tubal ligation 31 yo @ 38 09/03 for scheduled repeat CS AL 08/27/22; dating by 6 09/03 ultrasound care at [facility]-- Dr. Haynes complicated by chronic buprenorphine therapy, hepatitis C, growth restriction, maternal tobacco abuse and previous CS x 2 Maternal carrier screen + Fragile X, but low risk assessment for fetus GBS positive She also desired tubal ligation performed at time of delivery Hospital Course Hospital Course Hospital Course: Postop course uneventful She is tolerating a regular diet She is ambulating and voiding without difficulty Pain control has been sufficient Lochia is appropriate She is asymptomatic with anemia but was treated with IV iron She is discharged home on POD #2 in stable condition and will f/u in 1-2 days for staple removal Exam Data for Last 24 hours Vital signs and Labs for Last 24 Hours: Temp Pulse Resp BP Pulse Ox 98.2 F 65 18 104/62 L 98 08/18/22 08:30 08/18/22 08:30 08/18/22 08:30 08/18/22 08:30 08/18/22 08:30 I & O for Last 24 hours: Intake & Output 08/16/22 08/17/22 08/18/22 08/19/22 11:59 11:59 11:59 11:59 Intake Total 1000 / 1000 0 / 0 Output Total 650 / 650 Balance 1000 / 1000 -650 / -650 Weight 164 lb Microbiology Reports for the Last 24 Hours: Microbiology 08/16/22 Unknown Urine,[place] Urine Culture - Preliminary NO GROWTH AFTER 24 HOURS Constitutional Constitutional: no acute distress *Routine HEENT Exam Head: Present normocephalic Eye: Absent conjunctival icterus or scleral injection ENT: Present mucous membranes moist *Routine Neck Exam Neck: Present supple *Routine Respiratory Exam Respiratory: Present CTA bilaterally *Routine Cardiovascular Exam Cardiovascular: Present RRR *Routine Abdominal Exam Abdominal: Present soft; Absent tenderness or distended *Routine Rectal Exam Patient deferred: visual exam and digital exam *Routine Exam Patient deferred: external exam Comments: Fundus firm below umbilicus *Routine Extremities Exam Extremities: Present edema *Routine Skin Exam Skin: Present intact and dry Comments: Incision intact without erythema or purulent drainage *Routine Neurological Exam Neurological: Present alert and oriented X3 Routine Psychiatric Exam Psychiatric: Present normal affect; Absent depressed Results Data Completed and Pending Labs on day of discharge: Preliminary micro results at discharge 08/16/22 Unknown Urine Culture - Preliminary Urine,[place] NO GROWTH AFTER 24 HOURS DS: Diagnosis Discharge Diagnosis (1) 38 weeks gestation of : Status: Acute (2) Encounter for maternal care for poor growth in rodrigues in third trimester: Status: Acute (3) Buprenorphine maintenance treatment affecting , antepartum: Status: Acute (4) Chronic hepatitis C affecting , antepartum: Status: Acute (5) Tobacco smoking affecting : Status: Acute (6) Group B Streptococcus carrier, +RV culture, currently : Status: Acute (7) Carrier of fragile X chromosome: Status: Acute (8) Previous section: Status: Chronic Problem details: x3 (9) Status post bilateral salpingectomy: Status: Acute Problem details: BPS Meds Home Medications and Allergies Home Medications Medication Instructions Recorded Confirmed Type vits no.126-ferrous fum 1 tab PO DAILY Supplement 12/21/21 08/16/22 History 28 mg iron-folic acid 800 mcg tablet (Classic ) buprenorphine HCl 8 mg sublingual 8 mg sublingual DAILY drug abuse 01/07/22 08/16/22 History tablet treatment acetaminophen 325 mg tablet 650 mg PO Q4HP PRN Mild Pain #30 08/18/22 Rx tabs ferrous sulfate 325 mg (65 mg 325 mg PO BID #60 tabs
[2022-08-25 12:38] LABS: Buprenorphine, Urine Positive (Cutoff=10)
== END 2022-08-18 14:27 | disposition home or self-care (01) | DRG 784 ==
PROVIDERS: Admitting Provider Obstetrics & Gynecology; PCP Physician Assistant; Visit Provider Obstetrics & Gynecology
PROC: 0UL70ZZ Occlusion of Bilateral Fallopian Tubes, Open Approach (ICD-10-PCS; CPT 59514; principal; 2022-08-16 07:30)
DX: O34.211 Maternal care for low transverse scar from previous cesarean delivery (principal); F19.20 Other psychoactive substance dependence, uncomplicated; O98.42 Viral hepatitis complicating childbirth; O99.324 Drug use complicating childbirth; Z3A.38 38 weeks gestation of pregnancy; Z37.0 Single live birth; O99.824 Streptococcus B carrier state complicating childbirth; Z30.2 Encounter for sterilization; O99.334 Smoking (tobacco) complicating childbirth; F17.210 Nicotine dependence, cigarettes, uncomplicated; Z3A.39 39 weeks gestation of pregnancy; O99.320 Drug use complicating pregnancy, unspecified trimester; B18.2 Chronic viral hepatitis C; O69.81X0 Labor and delivery complicated by cord around neck, without compression, not applicable or unspecified; O36.5930 Maternal care for other known or suspected poor fetal growth, third trimester, not applicable or unspecified; O99.02 Anemia complicating childbirth
CPT/HCPCS: 59514; 58611; 36415; 59025; 80053; 80305; 80307; 81001; 82800; 85014; 85018; 85025; 86850; 87086; 94761; C9290; C9803; G0283; J0571; J1756; J2405; U0003; U0005

== ENCOUNTER 2022-12-05 15:33 | Emergency (ER) | payer BC, SELFPAY ==
[2022-12-05] VITALS (7 sets, daily range): BP systolic 100–123; BP diastolic 43–68; PULSE 62–120; RESP 16–18; TEMP 37.7–38.3; O2SAT 98–99; BMI 22.3
[2022-12-05 15:49] LABS: Microscopic, Urine URINE MICROSCOPIC (MICROSCOPIC)
[2022-12-05 15:55] LABS: Appearance,Urine CLOUDY (Clear); Bilirubin,Urine Negative (Negative); Blood, Urine 2+ (Negative); Color,Urine YELLOW (Yellow); Glucose,Urine (UA) Negative (Negative); Ketones,Urine TRACE (Negative); Leukocyte Esterase,Urine 2+ (Negative); Nitrate,Urine Negative (Negative); Protein,Urine 3+ (Negative)
--- NOTE | 2022-12-05 15:55 | HMH.EDGENADL ---
Discharge Plan Disposition Patient Disposition: Xfer Short-Term Hosp Condition: Fair Prescriptions Prescriptions: New ciprofloxacin HCl 500 mg tablet 500 mg PO BID Qty: 20 0RF No Action buprenorphine HCl 8 mg tablet, sublingual 8 mg SL DAILY Rx Instructions: VERIFIED WITH [facility] sertraline [Zoloft] 50 mg tablet 100 mg PO DAILY Qty: 30 6RF Referrals Follow up/Referrals: Lily Tejada PA [Primary Care Provider] - See instructions Activity Restrictions/Add. Instructions Additional Instructions/Restrictions: . Clinical Impressions Clinical Impression: Pyelonephritis, Hydronephrosis with renal and ureteral calculous obstruction Stand Alone Forms Stand Alone Forms: Transfer Record - ED Discharge ED Provider: Colby Mcdowell Adult HPI General Chief complaint: PAIN Stated complaint: r side pain,fever Time Seen by Provider: 12/05/22 15:55 Mode of Arrival: Ambulatory Source of Information: Patient Limitations: No Limitations Description of Symptoms (Recalled from ER Triage Doc. by RN): Presents to ED with complaints of right sided flank pain that started a couple days ago. Denies hx of kidney stones, dysuria, hematuria, and urinary urgency. Fever PSYCH ASSISTANT 103.9. [place] OTC Tylenol for fever. History of Present Illness HPI narrative: The patient presents to the emergency department complaining of right-sided flank pain for the last 2 days. The patient has had a fever at home. She has vomited once. She denies any diarrhea. She had a in July. She is not currently breast-feeding. There are no sick contacts at home. The patient has not had any other abdominal surgeries. Related Data Home Medications Medication Instructions Recorded Confirmed buprenorphine HCl 8 mg sublingual 8 mg sublingual DAILY drug abuse 01/07/22 09/24/22 tablet treatment Previous Rx's Medication Instructions Recorded sertraline 50 mg tablet (Zoloft) 100 mg PO DAILY #30 tabs 09/24/22 ciprofloxacin HCl 500 mg tablet 500 mg PO BID #20 tabs 12/05/22 Allergies Allergy/AdvReac Type Severity Reaction Status Date / Time No Known Allergies Allergy Verified 09/24/22 13:37 [facility] Disclaimer: The information contained in this section may have been updated after the patient was seen, as this information can be updated by other users. 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 Tobacco use Surgical History History of Previous section x3 Status post bilateral salpingectomy BPS Family History Other Cancer Coronary artery disease Diabetes Heart attack Hyperlipidemia Hypertension Stroke Substance abuse Social History Smoking Status: Current every day smoker tobacco type: cigarettes packs per day: 1 alcohol intake: never substance use type: former substance user current occupational status: unemployed Travel in the last 8 weeks: None do you feel safe at home: Yes victim of physical abuse: No victim of emotional abuse: No victim of sexual abuse: No ROS Obtained: Yes All systems reviewed & no additional complaints except as documented Physical Exam General General appearance: alert Head Head exam: atraumatic Eye Eye exam: Present normal appearance ENT ENT exam: Present normal exam Neck Neck exam: Present normal inspection and full ROM; Absent tenderness or meningismus Chest Chest inspection: Present normal inspection and symmetric chest wall rise; Absent tenderness Respiratory Respiratory exam: Presen
[2022-12-05 16:22] LABS: Basophils % 0.1 % (0.1-2.0); Eosinophils # 0.1 K/mm3 (0.0-0.4); Eosinophils % 0.8 % (0.1-12.0); Hematocrit 32.3 % (37.0-47.0); Hemoglobin 10.3 g/dL (12.2-16.2); Mean Corpuscular HGB Conc 31.9 g/dL (31.8-35.4); Mean Corpuscular Hemoglobin 26.6 pg (27.0-31.2); Mean Corpuscular Volume 83.2 fl (81-99); Mean Platelet Volume 9.2 fl (7.4-10.4); Monocytes # 0.5 K/mm3 (0.1-1.0); Neutrophils # 10.3 K/mm3 (1.8-7.8); Platelet Count 233 K/mm3 (142-424); Red Blood Count 3.88 M/mm3 (4.20-5.40); Red Cell Distribution Width 15.2 % (11.5-17.5); White Blood Count 11.8 K/mm3 (4.8-10.8)
[2022-12-05 16:25] LABS: MANUAL DIFFERENTIAL MANUAL DIFFERENTIAL (MANUAL DIFF)
--- NOTE | 2022-12-05 16:25 | CT_ITS ---
PROCEDURE INFORMATION: Exam: CT Abdomen And Pelvis Without Contrast Exam date and time: 12/05/2022 5:00 PM Age: 32 years old Clinical indication: Abdominal pain; Additional info: Right flank pain with hematuria TECHNIQUE: Imaging protocol: Computed tomography of the abdomen and pelvis without contrast. Radiation optimization: All CT scans at this facility use at least one of these dose optimization techniques: automated exposure control; mA and/or kV adjustment per patient size (includes targeted exams where dose is matched to clinical indication); or iterative reconstruction. REPORTING DATA: Count of CT and Cardiac NM exams in prior 12 months: This patient has received 0 known CTs and 0 known cardiac nuclear medicine studies in the 12 months prior to the current study. COMPARISON: US OB BIOPHYSICAL PROFILE 08/08/2022 11:08 AM FINDINGS: Liver: Normal. No mass. Gallbladder and bile ducts: Normal. No calcified stones. No ductal dilation. Pancreas: Normal. No ductal dilation. Spleen: Normal. No splenomegaly. Adrenal glands: Normal. No mass. Kidneys and ureters: 0.3 cm right distal ureteral calculus at level of pelvic brim (series 3 image 75) with proximal hydroureter, diffuse renal parenchymal edema and perinephric fat stranding and small perinephric fluid collection. No left nephroureterolithiasis hydroureter. Stomach and bowel: Unremarkable. No obstruction. No mucosal thickening. Appendix: No evidence of appendicitis. Intraperitoneal space: Unremarkable. No free air. No significant fluid collection. Vasculature: Unremarkable. No abdominal aortic aneurysm. Lymph nodes: Unremarkable. No enlarged lymph nodes. Urinary bladder: Unremarkable as visualized. Reproductive: Unremarkable as visualized. Bones/joints: Unremarkable. No acute fracture. Soft tissues: Unremarkable. IMPRESSION: Distal right ureteral calculus with proximal hydroureter. Likely diffuse reactive edema in right kidney possibly reflecting abrupt kidney obstruction from calculus in ureter. Although less likely, can not exclude inflammation from infectious etiology including pyelonephritis. Consider follow-up to document resolution of inflammation.
[2022-12-05 16:26] LABS: Chloride 96 mmol/L (98-107); Potassium 3.6 mmoL/L (3.5-5.1); Sodium 131 mmol/L (136-145)
[2022-12-05 16:29] LABS: Alanine Aminotransferase 19 U/L (12-78); Albumin Level 3.4 g/dl (3.5-5.0); Alkaline Phosphatase 69 U/L (38-126); Anion Gap 11.6 mEq/L (5-15); Aspartate Amino Transferase 25 U/L (14-36); Bilirubin,Total 0.3 mg/dl (0.2-1.3); Blood Urea Nitrogen 20 mg/dl (7-17); Carbon Dioxide 27 mmol/L (22.0-30.0); Creatinine Clearance Estimated 53 mL/min (50-200); Estimated Glomerular Filt Rate 43 ml/min (>60); GFR (African American) 52 ML/MIN (>60); Globulin 3.3 g/dL (1.3-3.2); Glucose 118 mg/dl (74-100); Total Protein,Serum 6.7 g/dl (6.3-8.2)
[2022-12-05 16:30] LABS: Bacteria,Urine 2+ /lpf
--- NOTE | 2022-12-05 16:31 | PC.NURSE ---
Hourly round completed, no complaints at this time. Pt updated on plan of care. Call mcguire within reach.
[2022-12-05 16:44] LABS: Urine Pregnancy, HCG Qual. Negative (Negative)
[2022-12-05 16:55] LABS: Lymphocytes % 6 % (10-50); Monocytes % 8 % (2-9); Neutrophils % 76 % (42-76); Total Cells Counted 100
[2022-12-05 16:57] LABS: Hypochromasia 2+; Microcytosis 2+; Platelet Estimate Normal; Poikilocytosis 1+
--- NOTE | 2022-12-05 17:40 | PC.NURSE ---
placed call to [facility] for urology at [place] or [facility].
--- NOTE | 2022-12-05 17:54 | PC.NURSE ---
Dr Mcdowell speaking with Dr Nava
--- NOTE | 2022-12-05 18:09 | PC.NURSE ---
Rounded on patient call mcguire within reach of patient; updated on plan of care
--- NOTE | 2022-12-05 18:22 | PC.NURSE ---
on the phone with [facility]
--- NOTE | 2022-12-05 18:23 | PC.NURSE ---
Dr Mcdowell speaking with hospitalist at [facility].
--- NOTE | 2022-12-05 18:28 | PC.NURSE ---
Dr. Araujo (Hospitalist) accepting at [facility].
--- NOTE | 2022-12-05 19:16 | PC.NURSE ---
Attempted to call report to Michael. Unable to take report at this time due to shift change. Will call back. Call back number . Room number [id number]
== END 2022-12-05 19:31 | disposition short-term general hospital (02) ==
PROVIDERS: Emergency Provider Emergency Medicine; PCP Physician Assistant
DX: N13.2 Hydronephrosis with renal and ureteral calculous obstruction (principal); N12 Tubulo-interstitial nephritis, not specified as acute or chronic; R11.10 Vomiting, unspecified; F17.210 Nicotine dependence, cigarettes, uncomplicated
CPT/HCPCS: 74176; 80053; 81001; 81025; 85007; 85025; 87086; 87088; 87186; 96361; 96374; 99285; J0696

== ENCOUNTER 2023-01-20 19:06 | Emergency (ER) | payer BC, SELFPAY ==
[2023-01-20 19:07] VITALS: BP 141/96; PULSE 90; RESP 18; TEMP 36.6; O2SAT 98; BMI 25.7
--- NOTE | 2023-01-20 19:19 | XR_ITS ---
PROCEDURE INFORMATION: Exam: XR Right Foot Exam date and time: 01/20/2023 7:21 PM Age: 32 years old Clinical indication: Pain; Ankle and foot; Right; Additional info: Fall TECHNIQUE: Imaging protocol: Radiologic exam of the right foot. Views: 3 or more views. COMPARISON: No relevant prior studies available. FINDINGS: Bones/joints: Mild dorsal medial spurring at the talar neck. Small type 2 accessory navicular noted without gross hypertrophic change or sclerosis at the pseudoarthrosis. No fractures. Normal alignment is maintained in the midfoot, hindfoot, and forefoot. Joint spaces are well-maintained. No blastic or lytic lesions. Normal osseous mineralization. No gross ankle joint effusion. No hindfoot coalition. Soft tissues: No periostitis. No gross soft tissue abnormalities. No radiopaque foreign bodies. Other findings: No osteolysis. IMPRESSION: No acute osseous abnormalities.
--- NOTE | 2023-01-20 19:19 | XR_ITS ---
PROCEDURE INFORMATION: Exam: XR Right Ankle Exam date and time: 01/20/2023 7:23 PM Age: 32 years old Clinical indication: Pain; Ankle; Right; Additional info: Fall TECHNIQUE: Imaging protocol: Radiologic exam of the right ankle. Views: 3 or more views. COMPARISON: CR XR FOOT RT MIN 3V 01/20/2023 7:21 PM FINDINGS: Bones/joints: No fractures. No blastic or lytic lesions. The ankle mortise joint is well maintained. No joint effusion. The visualized hindfoot and midfoot are grossly well aligned. No hindfoot coalition. Small type 2 accessory navicular noted. Soft tissues: No periostitis or osteolysis. Question mild lateral soft tissue swelling over the lateral malleolus. No radiopaque foreign bodies. IMPRESSION: 1. No acute osseous abnormalities. 2. Question mild lateral soft tissue swelling.
--- NOTE | 2023-01-20 19:22 | EXP.UTC ---
Discharge Plan Disposition Patient Disposition: Home, Self-Care Condition: Good Prescriptions Prescriptions: New ibuprofen [ibuprofen] 600 mg tablet 600 mg PO Q6HP PRN (Reason: Mild Pain) Qty: 30 0RF No Action buprenorphine HCl 8 mg tablet, sublingual 8 mg SL DAILY Rx Instructions: VERIFIED WITH [facility] Vraylar 1.5 mg capsule 1.5 mg PO DAILY Qty: 30 2RF Rx Instructions: Has tried multiple SSRI's/SNRI's in past w/o effect Referrals Follow up/Referrals: Lily Tejada PA [Primary Care Provider] - See instructions Joy Jacobsen DPM [Staff Physician] - See instructions Activity Restrictions/Add. Instructions Additional Instructions/Restrictions: Rest the extremity, apply ice for 15 minutes as tolerated three or four times per day, Elevate the extremity as tolerated while you are resting. Use your crutches and only bear minimal weight on your foot until you are seen by orthopedics (Dr. Jacobsen). Take ibuprofen for pain. I sent in a prescription to your pharmacy. Follow up with Dr. Jacobsen (podiatry). I put in a referral but you need to call her office and schedule an appointment. Follow up with your regular doctor. GO TO THE ER FOR ANY WORSENING SYMPTOMS Clinical Impressions Clinical Impression: Foot fracture, right Instructions Patient Instructions: DI for Foot Fracture, How to Use a Walking Boot Discharge ED Provider: Ricrado Fuller [facility] [place] HPI General Stated complaint: AO 01/20@1830 R ankle injury Mode of Arrival: Ambulatory Source of Information: Patient Limitations: No Limitations Time Seen by Provider: 01/20/23 19:22 Description of Symptoms (Recalled from Triage Doc. by RN): Patient states her cat tripped her causing her to injure her right ankle. 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 Related Data Home Medications Medication Instructions Recorded Confirmed buprenorphine HCl 8 mg sublingual 8 mg sublingual DAILY drug abuse 01/07/22 01/09/23 tablet treatment Previous Rx's Medication Instructions Recorded cariprazine 1.5 mg capsule 1.5 mg PO DAILY #30 caps 01/09/23 (Vraylar) ibuprofen 600 mg tablet 600 mg PO Q6HP PRN Mild Pain #30 01/20/23 tabs Allergies Allergy/AdvReac Type Severity Reaction Status Date / Time No Known Allergies Allergy Verified 01/09/23 14:07 Worker's Comp Is this a Worker's Comp case?: No PFSH PFS Disclaimer: The information contained in this section may have been updated after the patient was seen, as this information can be updated by other users. 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 Tobacco use Surgical History History of Previous section Status post bilateral salpingectomy Family History Other Cancer Coronary artery disease Diabetes Heart attack Hyperlipidemia Hypertension Stroke Substance abuse Social History Smoking Status: Current every day smoker tobacco type: cigarettes packs per day: 1 alcohol intake: never substance use type: former substance user current occupational status: unemployed Travel in the last 8 weeks: None do you feel safe at home: Yes victim of physical abuse: No victim of emotional abuse: No victim of sexual abuse: No ROS Obtained: Yes All systems review
[2023-01-20 20:06] VITALS: BP 141/96; PULSE 90; RESP 18; TEMP 36.6; O2SAT 98
== END 2023-01-20 20:07 | disposition home or self-care (01) ==
PROVIDERS: Emergency Provider Nurse Practitioner Family; PCP Physician Assistant
DX: S92.901A Unspecified fracture of right foot, initial encounter for closed fracture; F17.210 Nicotine dependence, cigarettes, uncomplicated; X50.1XXA Overexertion from prolonged static or awkward postures, initial encounter
CPT/HCPCS: 73610; 73630; 99212; 99214; G0463

== ENCOUNTER → 2023-02-25 11:00 | Outpatient (CLI) | payer BC, SELFPAY ==
[2023-02-25 18:04] LABS: Alanine Aminotransferase 15 U/L (12-78); Albumin Level 4.1 g/dl (3.5-5.0); Albumin/Globulin Ratio 1.4 (1.1-1.8); Alkaline Phosphatase 51 U/L (38-126); Anion Gap 11.7 mEq/L (5-15); Aspartate Amino Transferase 18 U/L (14-36); Blood Urea Nitrogen 15 mg/dl (7-17); Calcium 9.3 mg/dl (8.4-10.2); Carbon Dioxide 26 mmol/L (22.0-30.0); Chloride 108 mmol/L (98-107); Chol/HDL Ratio 2.5 (1-3.5); Cholesterol 177 mg/dl (140-200); Estimated Glomerular Filt Rate 96 ml/min (>60); GFR (African American) 117 ML/MIN (>60); Glucose 66 mg/dl (74-100); HDL Cholesterol 71 mg/dl (40-60); Potassium 3.7 mmoL/L (3.5-5.1); Sodium 142 mmol/L (136-145); Total Protein,Serum 7.1 g/dl (6.3-8.2); Triglycerides 65 mg/dl (30-150); VLDL Cholesterol 13 mg/dL (0-40)
[2023-02-25 18:11] LABS: Hemoglobin A1C 5.1 % (4.0-6.0)
[2023-02-25 18:14] LABS: Direct LDL Cholesterol 86.08 mg/dL (100-129)
[2023-02-25 18:16] LABS: Bilirubin,Total < 0.1 mg/dl (0.2-1.3)
[2023-02-25 18:21] LABS: 25-OH Vitamin D, Total 35.8 ng/mL (30-100)
[2023-02-25 18:34] LABS: Thyroid Stimulating Hormone 1.18 uIU/mL (0.465-4.68)
[2023-02-25 18:39] LABS: Basophils % 0.2 % (0.1-2.0); Eosinophils # 0.1 K/mm3 (0.0-0.4); Eosinophils % 0.4 % (0.1-12.0); Hematocrit 38.1 % (37.0-47.0); Hemoglobin 11.7 g/dL (12.2-16.2); Lymphocytes # 4.1 K/mm3 (0.7-4.5); Lymphocytes % 26.2 % (10-50); Mean Corpuscular HGB Conc 30.8 g/dL (31.8-35.4); Mean Corpuscular Hemoglobin 27.8 pg (27.0-31.2); Mean Corpuscular Volume 90.2 fl (81-99); Mean Platelet Volume 9.1 fl (7.4-10.4); Monocytes # 0.9 K/mm3 (0.1-1.0); Monocytes % 5.8 % (1.7-9.3); Neutrophils # 10.5 K/mm3 (1.8-7.8); Neutrophils % 67.3 % (37.0-80.0); Platelet Count 322 K/mm3 (142-424); Red Blood Count 4.23 M/mm3 (4.20-5.40); Red Cell Distribution Width 17.4 % (11.5-17.5); White Blood Count 15.6 K/mm3 (4.8-10.8)
[2023-02-25 18:41] LABS: MANUAL DIFFERENTIAL MANUAL DIFFERENTIAL (MANUAL DIFF)
[2023-02-25 18:54] LABS: Vitamin B12 334 pg/mL (239-931)
[2023-02-25 19:12] LABS: Lymphocytes % 35 % (10-50); Monocytes % 5 % (2-9); Neutrophils % 60 % (42-76); Platelet Estimate Normal; RBC Morphology Normal; Total Cells Counted 100
== END ==
PROVIDERS: PCP Physician Assistant; Visit Provider Physician Assistant
DX: R63.4 Abnormal weight loss (principal); F41.9 Anxiety disorder, unspecified
CPT/HCPCS: 80053; 80061; 82306; 82607; 83036; 84443; 85007; 85025

== ENCOUNTER → 2023-03-24 12:00 | Outpatient (CLI) | payer BC, SELFPAY ==
[2023-03-24 19:33] LABS: Chloride 108 mmol/L (98-107); Potassium 4.5 mmoL/L (3.5-5.1); Sodium 141 mmol/L (136-145)
[2023-03-24 19:35] LABS: Hemoglobin A1C 5.2 % (4.0-6.0)
[2023-03-24 19:36] LABS: Blood Urea Nitrogen 11 mg/dl (7-17); Estimated Glomerular Filt Rate 96 ml/min (>60); GFR (African American) 117 ML/MIN (>60)
[2023-03-24 19:37] LABS: Anion Gap 11.5 mEq/L (5-15); Carbon Dioxide 26 mmol/L (22.0-30.0); Glucose 61 mg/dl (74-100)
[2023-03-26 20:32] LABS: C-Peptide 2.4 ng/mL (1.1-4.4)
== END ==
PROVIDERS: PCP Physician Assistant; Visit Provider Physician Assistant
DX: E16.2 Hypoglycemia, unspecified (principal)
CPT/HCPCS: 80048; 83036; 83525; 84681

== ENCOUNTER → 2023-04-08 07:25 | Outpatient (CLI) | payer BC, SELFPAY ==
--- NOTE | 2023-04-08 07:26 | CT_ITS ---
FINAL REPORT TECHNIQUE: Axial CT images of the abdomen were obtained without contrast. Coronal reformatted images were also obtained.This study was performed with techniques to keep radiation doses as low as reasonably achievable (ALARA). Individualized dose reduction techniques using automated exposure control or adjustment of mA and/or kV according to the patient''s size were employed. CLINICAL HISTORY: hypoglycemia, insulinoma FINDINGS: The lung bases are clear. The liver has an unremarkable appearance, without evidence of mass. The gallbladder appears normal without evidence of gallstones. There is no evidence of biliary ductal dilatation. The pancreas appears normal. No pancreatic mass is identified. The spleen size is within normal limits. There is no evidence of renal stone or hydronephrosis. There is no evidence of adenopathy. No abnormal fluid collection is seen. No localized inflammatory processes identified. The appendix is normal. There is a moderate to large amount of retained stool. IMPRESSION: No mass or localized inflammatory process identified. Reviewed, Interpreted and Dictated by Twin Marlow III, MD Transcribed by Bassam Lucas Authenticated and [facility]
== END ==
PROVIDERS: PCP Physician Assistant; Visit Provider Physician Assistant
DX: D13.7 Benign neoplasm of endocrine pancreas (principal); E16.2 Hypoglycemia, unspecified
CPT/HCPCS: 74150

== ENCOUNTER → 2023-05-16 09:05 | Outpatient (CLI) | payer BC, SELFPAY ==
--- NOTE | 2023-05-16 09:09 | XR_ITS ---
FINAL REPORT CLINICAL HISTORY: Rt Elbow pain FINDINGS: Right elbow Three views were obtained. There is no acute fracture or dislocation. The joint spaces appear normal. No joint effusion is identified. No soft tissue abnormality is identified. IMPRESSION: No acute process. Reviewed, Interpreted and Dictated by Aaron Cavanaugh MD Transcribed by Bonnie Marino Authenticated and [facility]
== END ==
PROVIDERS: PCP Physician Assistant; Visit Provider Orthopaedic Surgery
DX: M77.11 Lateral epicondylitis, right elbow (principal)
CPT/HCPCS: 73080

== ENCOUNTER → 2023-06-09 07:54 | Outpatient (CLI) | payer BC, SELFPAY ==
[2023-06-10 08:17] LABS: DHEA-Sulfate 65.7 ug/dL (84.8-378.0)
[2023-06-15 22:38] LABS: Renin Activity, Plasma 0.796
== END ==
PROVIDERS: PCP Physician Assistant; Visit Provider Physician Assistant
DX: R73.9 Hyperglycemia, unspecified (principal)
CPT/HCPCS: 36415; 82088; 82533; 82626; 84244

== ENCOUNTER → 2023-06-12 23:56 | Outpatient (CLI) | payer BC, SELFPAY ==
[2023-06-12 19:08] LABS: Coronavirus 19, PCR Not Detected (NotDetected); Influenza A, PCR Not Detected (NotDetected); Influenza B, PCR Not Detected (NotDetected)
== END ==
PROVIDERS: PCP Physician Assistant; Visit Provider Family Medicine
DX: R06.02 Shortness of breath (principal)
CPT/HCPCS: 87636

== ENCOUNTER 2023-07-01 07:26 | Outpatient (CLI) | payer BC, SELFPAY ==
--- NOTE | 2023-07-01 07:34 | MR_ITS ---
FINAL REPORT TECHNIQUE: Multiplanar MRI of the abdomen was performed with and without intravenous contrast. 3D MRCP was performed as well as part of the evaluation. 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 There is mild degradation of image quality secondary to motion artifact. Images of the liver reveal no evidence of mass. There is no evidence of biliary ductal dilatation. The gallbladder has an unremarkable appearance. No other mass or adenopathy is identified. No abnormal fluid collection is seen. No abnormal contrast enhancement is seen on the postcontrast images. Evaluation of MRCP 3D images fails to reveal any evidence of mass or filling defect. IMPRESSION: No mass or abnormal contrast enhancement identified. Reviewed, Interpreted and Dictated by Twin Marlow III, MD Transcribed by Dianne Escobar Authenticated and [facility]
[2023-07-01] MEDS: SODIUM CHLORIDE 0.9% 50ML BAG 50 ML IV (08:48)
[2023-07-01] MEDS: GADOTERIDOL INJ 17ML SYRINGE 12 ML IV (08:48)
[2023-07-01] MEDS: SODIUM CHLORIDE 0.9% 10ML SYR (RAD ONLY) 10 ML IV (08:48)
== END 2023-07-01 23:59 ==
LOC: RAD 07:27
PROVIDERS: PCP Physician Assistant; Visit Provider Physician Assistant
DX: E16.2 Hypoglycemia, unspecified (principal)
CPT/HCPCS: 74183; 76376; A9576

== ENCOUNTER 2023-11-11 09:55 | Outpatient (RCR) | payer BC, SELFPAY ==
--- NOTE | 2023-11-11 10:47 | HMH.OTOPEV ---
OT Inpatient Evaluation Rehab OT Outpatient Eval Start: 11/11/23 10:28 Freq: Status: Active Protocol: Document 11/11/23 10:28 RMARSHALL (Rec: 11/11/23 10:46 RMARSHALL Laptop) E-signed By Myla Parmar, OT Outpatient Therapy Subjective History Subjective History Pt is a 32 year old female. Pt has no hx of cancer or other medical conditions. Pt complains of constant pain in Right elbow that has been constant for 6+ months now and recalls no exact injury that has caused condition. Pt works at [employer], but is currently laid off awaiting for a call back date. However, pts pain began while she was working and reports the job duties require constant repetitive motion at bilateral arms. Pt is right hand dominant. Pt reports pain on the medial aspect of right elbow which is consistent with medial epicondylitis. 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 Pt demonstrates with decreased AROM and strength at elbow along with decreased right hand grey stock recorder strength. Pt will continue to be seen for OT services to address all deficits. New diagnosis of cancer in past 12 No months? Chief Complaint Pain Symptom Type Ache,Throb,Sharp,Numbness, Tingling Prior Functional Limitations None Current Functional Limitations Reaching,Lifting,Housework, Sleeping,Recreation Activity Symptom Description Constant but Variable Level of pain today (0-10) 4 Pain scale - at its best (0-10) 4 Pain scale - at its worst (0-10) 10 Shoulder/Elbow Eval Shoulder Objective Measurements Elbow Objective Measurements Elbow ROM Right Elbow Extension Active Range of Motion ( -18 degrees) Elbow Flexion Active Range of Motion ( 118 degrees) Elbow Pronation of Forearm Range of 80 Motion (degrees) Elbow Supination of Forearm Range of 90 Motion (degrees) Elbow MMT Elbow Flexion Strength Grade 3 Fair Elbow Extension Strength Grade 3 Fair Supination Strength Grade 3 Fair Pronation Strength Grade 3 Fair Wrist/Hand Eval Extension Course Counselor/Pinch Strength Right Extension Course Counselor Strength Measurement (lbs) 52 Left Extension Course Counselor Strength Measurement (lbs) 63 QuickDASH Activities Please rate your ability to do the following activities in the last week by selecting the number below the appropriate response. 1. Open a tight or new jar. Mild difficulty 2. Do heavy waiter/waitress second class (e.g., wash Moderate difficulty addison, floors). 3. Carry a shopping bag or briefcase. Mild difficulty 4. Wash your back. Severe difficulty 5. Use a knife to cut food. Mild difficulty 6. Recreational activities in which you Moderate difficulty take some force or impact through your arm, shoulder, or hand (e.g., golf, hammering, tennis, etc.). 7. During the past week, to what extent Moderately has your arm, shoulder or hand problem interfered with your normal social activities with family, friends, neighbors or groups? 8. During the past week, were you Moderately limited limited in your work or other regular daily activites as a result of your arm, shoulder or hand problem? 9. Arm, shoulder or hand pain. Severe 10. Tingling (pins and needles) in your Mild arm, shoulder or hand. 11. During the past week, how much Moderate difficulty difficulty have you had sleeping because of the pain in your arm, shoulder or hand? Quick DASH 31 OT Outpatient Assessment Impairments Problems/Impairments Palpation Tenderness,Impaired Range of Motion,Impaired Strength,Impaired Endurance, Impaired Lifting,Impaired Household Care,Impaired Work Activities,Subjective C/O Pain Prognosis Rehab Potential Good Clinical Impression Consistent with Diagnosis No Consistent with Medial Epicondylitis Short Term Goals Number of Weeks 3 Increase Range of Motion Yes: Flex: 130 Ext: -10 Pronation: 90 Increase Strength Yes: 4-,3+/5 throughout right elbow Increase Endurance Yes: Pt will tolerate R elbow exercises for ~15 min prior to rest. Decrease Subjective C/O Pain Yes: 6/10 at worst Patient to be Ind w/ HEP Yes: AROM, AAROM, and PROM exercises at elbow Improve Quick Dash Score Yes: Activities: 25 or below Shelter Goals Number of Weeks 6 Increase Range of Motion Yes: Flex: 135 Ext: -5 Pronation: 90 Increase Strength Yes: 4/5 throughout right elbow Increase Endurance Yes: Pt will tolerate R shoulder exercises for ~30 minutes prior to rest. Decrease Subjective C/O Pain Yes: 3/10 at worst Patient to be Ind w/ Advanced HEP Yes: Advanced strengthening Outpatient Therapy Plan of Care Treatment Plan May Include Therapeutic Exercise Including Home Yes Exercise Program Manual Therapy Techniques Yes Neuromuscular Re-education Yes Therapeutic Activities to Return to Yes Previous Functional/Work Level ADL/Self Care Education Yes Dry Needling Yes Thermal Modalities Yes Electrical Stimulation Yes Ultrasound/Phonophoresis Yes Iontophoresis Yes Orthotics/Bracing/Splinting Yes Massage Yes Eval/Re-Eval Yes Frequency Times per week 2 Duration Number of Weeks 6 Addendums This patient is a candidate for social No or vocational rehab? Patient/Guardian verbally acknowledges Yes understanding of treatment program and consents to further treatment? Patient/Guardian verbally acknowledges Yes understanding of diagnosis, prognosis and goals for treatment? Eval Complexity OT Charge 77502 - Moderate Complexity PHYSICIAN CERTIFICATION: I certify the specified therapy services for Brea Hdz are required, authorized, and reviewed every 30 days.
== END 2023-11-11 11:00 | disposition home or self-care (01) ==
LOC: OT 09:55
PROVIDERS: Visit Provider Family Medicine
DX: M25.521 Pain in right elbow (principal); M77.11 Lateral epicondylitis, right elbow
CPT/HCPCS: 97166

== ENCOUNTER 2023-12-03 10:22 | Outpatient (CLI) | payer BC, SELFPAY ==
[2023-12-03 20:08] LABS: Amphetamine/Metha Screen,Urine Negative ng/ml (<1000)
[2023-12-03 20:09] LABS: Barbiturates Screen,Urine Negative ng/ml (<200)
[2023-12-03 20:10] LABS: Benzodiazepines Screen,Urine Negative ng/ml (<200); Cannabinoid Screen,Urine Negative ng/ml (<50)
[2023-12-03 20:13] LABS: Cocaine Screen,Urine Negative ng/ml (<300); Methadone Screen,Urine Negative ng/ml (<300)
[2023-12-03 20:14] LABS: Opiate Screen,Urine Negative ng/ml (<300)
[2023-12-03 20:15] LABS: Phencyclidine Screen,Urine Negative ng/ml (<25)
== END 2023-12-03 23:59 | disposition home or self-care (01) ==
LOC: LAB.DROPOF 12-04 10:23
PROVIDERS: PCP Nurse Practitioner Acute Care; Visit Provider Nurse Practitioner Acute Care
DX: Z79.899 Other long term (current) drug therapy (principal)
CPT/HCPCS: 80307

== ENCOUNTER 2024-01-28 09:48 | Outpatient (CLI) | payer BC, SELFPAY ==
--- NOTE | 2024-01-28 09:52 | XR_ITS ---
FINAL REPORT CLINICAL HISTORY: Rt Elbow Pain FINDINGS: Right elbow Three views were obtained. There is no acute fracture or dislocation. The joint spaces appear normal. No soft tissue abnormality is identified. IMPRESSION: No acute process. Reviewed, Interpreted and Dictated by Aaron Cavanaugh MD Transcribed by Bonnie Marino Authenticated and [facility]
== END 2024-01-28 23:59 | disposition home or self-care (01) ==
LOC: RAD 09:49
PROVIDERS: PCP Physician Assistant; Visit Provider Physician Assistant Surgical
DX: M25.521 Pain in right elbow (principal)
CPT/HCPCS: 73080

== ENCOUNTER 2024-07-07 14:03 | Outpatient (CLI) | payer MEDICAID, SELFPAY ==
[2024-07-07 18:03] LABS: Basophils % 0.6 % (0.1-2.0); Eosinophils # 0.1 K/mm3 (0.0-0.4); Eosinophils % 0.9 % (0.1-12.0); Hematocrit 38.9 % (37.0-47.0); Hemoglobin 12.9 g/dL (12.2-16.2); Lymphocytes # 2.6 K/mm3 (0.7-4.5); Lymphocytes % 47.6 % (10-50); Mean Corpuscular HGB Conc 33.2 g/dL (31.8-35.4); Mean Corpuscular Hemoglobin 30.2 pg (27.0-31.2); Mean Corpuscular Volume 91.1 fl (81-99); Mean Platelet Volume 10.8 fl (7.4-10.4); Monocytes # 0.4 K/mm3 (0.1-1.0); Monocytes % 7.8 % (1.7-9.3); Neutrophils # 2.3 K/mm3 (1.8-7.8); Neutrophils % 43.1 % (37.0-80.0); Platelet Count 274 K/mm3 (142-424); Red Blood Count 4.27 M/mm3 (4.20-5.40); Red Cell Distribution Width 13.1 % (11.5-17.5); White Blood Count 5.4 K/mm3 (4.8-10.8)
[2024-07-07 18:44] LABS: Alanine Aminotransferase 15 U/L (12-78); Albumin Level 4.5 g/dl (3.5-5.0); Alkaline Phosphatase 41 U/L (38-126); Aspartate Amino Transferase 27 U/L (14-36); Bilirubin,Total 0.5 mg/dl (0.2-1.3); Blood Urea Nitrogen 10 mg/dl (7-17); Calcium 9.4 mg/dl (8.4-10.2); Carbon Dioxide 26 mmol/L (22.0-30.0); Chloride 106 mmol/L (98-107); Chol/HDL Ratio 3.5 (1-3.5); Cholesterol 190 mg/dl (140-200); Erythrocyte Sedimentation Rate 21 mm/hr (0-20); Estimated Glomerular Filt Rate 96 ml/min (>60); GFR (African American) 116 ML/MIN (>60); Globulin 2.3 g/dL (1.3-3.2); Glucose 85 mg/dl (74-100); HDL Cholesterol 55 mg/dl (40-60); Sodium 137 mmol/L (136-145); Total Protein,Serum 6.8 g/dl (6.3-8.2); Triglycerides 54 mg/dl (30-150); Uric Acid 2.8 mg/dl (2.5-6.2); VLDL Cholesterol 11 mg/dL (0-40)
[2024-07-07 18:55] LABS: C-Reactive Protein 1.3 mg/L (0-4); Direct LDL Cholesterol 118.35 mg/dL (100-129)
[2024-07-07 19:03] LABS: 25-OH Vitamin D, Total 28.8 ng/mL (30-100)
[2024-07-07 20:22] LABS: Thyroid Stimulating Hormone 1.31 uIU/mL (0.465-4.68)
== END 2024-07-07 23:59 | disposition home or self-care (01) ==
LOC: LAB.DROPOF 07-08 12:49
PROVIDERS: PCP Nurse Practitioner Family; Visit Provider Nurse Practitioner Family
DX: G56.00 Carpal tunnel syndrome, unspecified upper limb (principal); F32.9 Major depressive disorder, single episode, unspecified; F41.1 Generalized anxiety disorder
CPT/HCPCS: 80053; 80061; 82306; 84443; 84550; 85025; 85651; 86140